=== PATIENT | female | born 1940 | race Caucasian/White ===

== ENCOUNTER → 2017-04-01 | Outpatient (CLI) | payer OTHER, MEDICARE ==
[~2017-04-01] MED LIST: ALPH600C2 PO; CLC100 PO; CMD/25 PO; DICL1GEL12 TOP; DLCS PR; ERGO500037 PO; FURO-85 PO; MECL1TAB42 PO; OMEG10007 PO; POTA-335 PO; SNK PO; TPRSR/50 PO; ULT50X PO; WARF5TAB7 PO
--- NOTE | 2017-04-01 12:36 | DIAGNOSTIC IMAGING REPORT ---
ABDOMEN LIMITED (US) CLINICAL HISTORY: 77 years-old Female presenting with LOW BACK PAIN. TECHNIQUE: Real-time grayscale and limited color Doppler ultrasound imaging of the abdomen limited to the right upper quadrant was performed. COMPARISON: None. FINDINGS: Pancreas: Obscured due to overlying bowel gas. Liver: Moderately hyperechogenic parenchyma with partial obscuration of the right hemidiaphragm, likely indicating moderate steatosis. Cluster of anechoic avascular lesions with posterior acoustic shadowing consistent with cysts noted in the left hepatic lobe. This cluster overall likely represents multiple hepatic cysts or hamartomas immediately adjacent to one another and measures 8.5 x 9.1 x 7.0 cm. The liver measures 21 cm in maximal sagittal dimension. Main portal vein patent with normal directional flow. Biliary: No intrahepatic biliary ductal dilatation. Common bile duct measures up to 4 mm in diameter. Gallbladder: Normal in appearance without evidence of gallstones, gallbladder wall thickening, or pericholecystic fluid. Sonographic Berg's sign negative. Right kidney: Normal in appearance and size, measuring 10.3 cm. No hydronephrosis. Ascites: None. IMPRESSION: 1. No evidence of cholelithiasis or cholecystitis. 2. Hepatic steatosis and hepatomegaly. Electronically signed by: Aleksey Engle M.D. 04/01/2017 12:35 PM Dictated Date/Time: 04/01/2017 12:31 PM
== END | disposition home or self-care (01) ==
LOC: C.ULTR 11:52
PROVIDERS: ATTEND Physician Assistant
DX: M54.5 Low back pain (principal); K76.89 Other specified diseases of liver

== ENCOUNTER → 2017-07-08 | Outpatient (CLI) | payer OTHER, MEDICARE ==
--- NOTE | 2017-07-08 14:25 | MAMMOGRAPHY REPORT ---
BILATERAL DIGITAL SCREENING MAMMOGRAM TOMOSYNTHESIS WITH CAD: 07/08/2017 CLINICAL HISTORY: Routine screening. TECHNIQUE: Breast tomosynthesis in addition to standard 2D mammography was performed. Current study was also evaluated with a Computer Aided Detection (CAD) system. COMPARISON: Comparison is made to exams dated: 07/07/2016 mammogram, 04/09/2015 mammogram, 03/02/2013 mammogram, 03/01/2012 mammogram, 02/27/2011 mammogram, and 02/26/2010 mammogram - [facility]. BREAST COMPOSITION: There are scattered areas of fibroglandular density in both breasts. FINDINGS: There is stable focal asymmetry in the upper outer quadrant of the left breast, and scatter ed benign-appearing calcifications bilaterally. No suspicious mass, architectural distortion or clus ter of suspicious microcalcifications is seen. IMPRESSION: ACR BI-RADS CATEGORY 1: NEGATIVE There is no mammographic evidence of malignancy. A 1 year screening mammogram is recommended. The pa tient will receive written notification of the results. Approximately 10% of breast cancers are not detected with mammography. A negative mammographic report should not delay biopsy if a clinically suggestive mass is present. Tara Alvarez M.D. ay/:07/08/2017 14:04:22 Hotel General Manager: Wan GUERRIER(R)(M), [facility] letter sent: Normal 1/2 BI-RADS Code: ACR BI-RADS Category 1: Negative
== END | disposition home or self-care (01) ==
LOC: C.MAMM 11:09
PROVIDERS: ATTEND Family Medicine
DX: Z12.31 Encounter for screening mammogram for malignant neoplasm of breast (principal)

== ENCOUNTER → 2017-11-30 | Outpatient (CLI) | payer OTHER, MEDICARE | END | disposition home or self-care (01) | LOC: C.RDSM 18:53 | PROVIDERS: ATTEND Physical Medicine & Rehabilitation Sports Medicine | DX: S42.231D 3-part fracture of surgical neck of right humerus, subsequent encounter for fracture with routine healing (principal); X58.XXXD Exposure to other specified factors, subsequent encounter ==

== ENCOUNTER → 2018-04-22 | Outpatient (CLI) | payer OTHER, MEDICARE | END | disposition home or self-care (01) | LOC: C.PATHSPEC 15:11 | PROVIDERS: ATTEND Dentist Oral and Maxillofacial Pathology | DX: D10.39 Benign neoplasm of other parts of mouth (principal) ==

== ENCOUNTER 2018-05-06 03:44 | Emergency (ER) | payer OTHER, MEDICARE ==
[~2018-05-06] VITALS: Ht 152.4 cm; Wt 119.0 kg
[2018-05-06 03:49] VITALS: TEMP 36.9; Ht 152.4 cm; Wt 119.0 kg
--- NOTE | 2018-05-06 04:13 | EMERGENCY ROOM VISIT NOTE ---
History Report prepared by Sharron: Javy Alejandre Under the Supervision of: Dr. Lino Carrillo M.D. First contact with patient: 03:53 Chief Complaint: RESPIRATORY PROBLEMS Stated Complaint: CHEST CONGESTION History of Present Illness The patient is an 78 year old female who presents to the Emergency Room with complaints of constant chest tightness beginning this morning. The patient states that she first got a cold yesterday. She notes that she was sleeping this morning and felt like she had a rattle in her chest. She reports that her symptoms reminded her of when she had pneumonia in the past, prompting her visit to the emergency department. She also complains of a cough. She denies any abdominal pain. The patient states that she also has a history of CHF and atrial fibrillation. She notes that she takes Coumadin and Lasix. Source of History: patient Onset: this morning Position: chest Quality: other (tightness) Timing: constant Associated Symptoms: + cough, No abdominal pain Review of Systems See HPI for pertinent positives & negatives. A total of 10 systems reviewed and were otherwise negative. Past Medical & Surgical Medical Problems: (1) Atrial fibrillation (2) CHF (congestive heart failure) (3) CKD (chronic kidney disease), stage III (4) Fracture of proximal end of right humerus (5) HTN (hypertension) (6) Shoulder pain, acute Surgical Problems: (1) H/O hernia repair (2) H/O: hysterectomy (3) History of colposcopy Family History Patient reports no known family medical history. Social History Smoking Status: Never Smoker Marital Status: single Housing Status: lives with family Occupation Status: retired Current/Historical Medications Scheduled Azithromycin (Zithromax), 250 MG PO DAILY Diclofenac Sodium (Topical) (Voltaren 1% Top Gel), 1 APPLN TOP PRN UD Ergocalciferol (Vitamin D 60190 Unit), 50,000 UNITS PO WK Furosemide (Lasix), 40 MG PO DAILY Furosemide (Lasix), 40 MG PO UD Losartan Potassium (Cozaar), 25 MG PO DAILY Metoprolol Succinate (Toprol Xl), 50 MG PO DAILY Potassium Chloride (K-Tab), 20 MEQ PO UD Potassium Chloride (K-Tab), 20 MEQ PO DAILY Prednisone (Prednisone Tab), 0 PO DAILY Warfarin Sod (Jantoven), 5 MG PO WK Warfarin Sod (Coumadin), 2.5 MG PO 6XWK Scheduled PRN Meclizine Hcl (Meclizine Hcl), 25 MG PO TID PRN for Dizziness or Vertigo Tramadol (Ultram), 50 MG PO Q4H PRN for Pain Allergies Coded Allergies: Latex1 -Allergic Contact Dermititis (Unverified Allergy, Unknown, Rash, itching, blisters, 05/30/15) Morphine (Verified Adverse Reaction, Severe, abdominal pain, 03/28/16) patient describes it as "tearing" Codeine (Verified Adverse Reaction, Mild, NAUSEA,ABD PAIN, 10/19/09) Replaces CODEINE PHOSP Oxycodone (Verified Adverse Reaction, Mild, OPIATE AGONSITS = NAUSEA AND ABD PAIN, 05/30/15) Physical Exam Vital Signs Date Time Temp Pulse Resp B/P (MAP) Pulse Ox O2 Delivery O2 Flow Rate FiO2 05/06/18 06:00 89 18 141/90 96 Room Air 05/06/18 04:51 96 Room Air 05/06/18 04:45 80 05/06/18 04:00 95 Room Air 05/06/18 03:49 36.9 84 18 169/116 95 Room Air Physical Exam GENERAL: Awake, alert, well-appearing, in no acute distress HENT: Normocephalic, atraumatic. Oropharynx unremarkable. EYES: Normal conjunctiva. Sclera non-icteric. NECK: Supple. No nuchal rigidity. FROM. No JVD. RESPIRATORY: Clear to auscultation. CARDIAC: Regular rate, normal rhythm. Extremities warm and well perfused. Pulses equal. ABDOMEN: Soft, non-distended. No tenderness to palpation. No rebound or guarding. No masses. RECTAL: Deferred. MUSCULOSKELETAL: Chest examination reveals no tenderness. The back is symmetrical on inspection without obvious abnormality. There is no CVA tenderness to palpation. No joint edema. LOWER EXTREMITIES: Calves are equal size bilaterally and non-tender. No edema. No discoloration. NEURO: Normal sensorium. No sensory or motor deficits noted. SKIN: No rash or jaundice noted. Medical Decision & Procedures ER Provider Diagnostic Interpretation: Radiology results as stated below per my review and interpretation: CHEST X-RAY: Chronic changes noted. No pneumonia, congestion, or pneumothorax. Laboratory Results 05/06/18 04:45 Red Blood Count 4.23, Mean Corpuscular Volume 87.7, Mean Corpuscular Hemoglobin 29.1, Mean Corpuscular Hemoglobin Concent 33.2, Mean Platelet Volume 9.6, Neutrophils (%) (Auto) 82.1, Lymphocytes (%) (Auto) 11.5, Monocytes (%) (Auto) 5.2, Eosinophils (%) (Auto) 1.0, Basophils (%) (Auto) 0.1, Neutrophils # (Auto) 5.57, Lymphocytes # (Auto) 0.78, Monocytes # (Auto) 0.35, Eosinophils # (Auto) 0.07, Basophils # (Auto) 0.01 05/06/18 04:45 Test 05/06/18 04:45 White Blood Count 6.79 K/uL (4.8-10.8) Red Blood Count 4.23 M/uL (4.2-5.4) Hemoglobin 12.3 g/dL (12.0-16.0) Hematocrit 37.1 % (37-47) Mean Corpuscular Volume 87.7 fL (80-100) Mean Corpuscular Hemoglobin 29.1 pg (25-34) Mean Corpuscular Hemoglobin Concent 33.2 g/dl (32-36) Platelet Count 205 K/uL (130-400) Mean Platelet Volume 9.6 fL (7.4-10.4) Neutrophils (%) (Auto) 82.1 % Lymphocytes (%) (Auto) 11.5 % Monocytes (%) (Auto) 5.2 % Eosinophils (%) (Auto) 1.0 % Basophils (%) (Auto) 0.1 % Neutrophils # (Auto) 5.57 K/uL (1.4-6.5) Lymphocytes # (Auto) 0.78 K/uL (1.2-3.4) Monocytes # (Auto) 0.35 K/uL (0.11-0.59) Eosinophils # (Auto) 0.07 K/uL (0-0.5) Basophils # (Auto) 0.01 K/uL (0-0.2) RDW Standard Deviation 49.0 fL (36.4-46.3) RDW Coefficient of Variation 15.0 % (11.5-14.5) Immature Granulocyte % (Auto) 0.1 % Immature Granulocyte # (Auto) 0.01 K/uL (0.00-0.02) Prothrombin Time 41.0 SECONDS (9.0-12.0) Prothromb Time International Ratio 4.0 (0.9-1.1) Anion Gap 8.0 mmol/L (3-11) Est Creatinine Clear Calc Drug Dose 61.7 ml/min Estimated GFR () 73.9 Estimated GFR (Non- 63.8 BUN/Creatinine Ratio 15.7 (10-20) Calcium Level 8.4 mg/dl (8.5-10.1) Total Bilirubin 0.6 mg/dl (0.2-1) Aspartate Amino Transf (AST/SGOT) 21 U/L (15-37) Alanine Aminotransferase (ALT/SGPT) 22 U/L (12-78) Alkaline Phosphatase 80 U/L (45-117) Total Creatine Kinase 127 U/L (26-192) Creatine Kinase MB 1.8 ng/ml (0.5-3.6) Creatine Kinase MB Ratio 1.4 (0-3.0) Troponin I < 0.015 ng/ml (0-0.045) Total Protein 7.1 gm/dl (6.4-8.2) Albumin 3.3 gm/dl (3.4-5.0) Globulin 3.8 gm/dl (2.5-4.0) Albumin/Globulin Ratio 0.9 (0.9-2) Labs reviewed by ED physician. Medications Administered Medications (Trade) Dose Ordered Sig/Carrington Route Start Time Stop Time Status Last Admin Dose Admin Levalbuterol (Xopenex 1.25MG/ 3ML Neb) 1.25 mg NOW STAT INH 05/06/18 04:14 05/06/18 04:16 DC 05/06/18 04:52 1.25 MG Methylprednisolone Sodium Succinate (Solu-Medrol IV) 60 mg NOW STAT IV 05/06/18 05:38 05/06/18 05:39 DC 05/06/18 05:57 60 MG Azithromycin (Zithromax Tab) 500 mg NOW STAT PO 05/06/18 05:53 05/06/18 05:54 DC 05/06/18 06:03 500 MG ECG Per My Interpretation Indication: chest pain Rate (beats per minute): 80 Rhythm: atrial fibrillation Findings: other (No ST elevation/depression) ED Course 0412: Past medical records reviewed. The patient was evaluated in room B6. A complete history and physical examination was performed. 0557: Upon reexamination the patient is stable. I discussed results and treatment plan with the patient. She verbalizes agreement and understanding. The patient is ready for discharge. Medical Decision Differential diagnosis: Etiologies such as infections, reactive airway disease, pneumonia, pneumothorax , COPD, CHF, cardiac ischemia, pulmonary embolism, musculoskeletal, gastrointestinal, as well as others were entertained. This is an 78-year-old female who presents to the emergency department complaining of shortness of breath and congestion and cough. The patient does not appear to be in any acute distress and is not hypoxic. She was given breathing treatments here in the emergency department with improvement in her symptoms. Her chest x-ray does not show any evidence of pneumonia congestion or pneumothorax. Her chest x-ray is essentially unchanged from previous chest x -rays. Based on these findings I will place the patient on prednisone along with azithromycin. She was given an inhaler to use at home. Of note the patient's INR was found to be 4.0 and I recommended she skip her Coumadin for 1 night. Patient was in agreement with the treatment plan. Medication Reconcilliation Current Medication List: was personally reviewed by me Blood Pressure Screening Patient's blood pressure: Elevated blood pressure Blood pressure disposition: Referred to PCP Impression Primary Impression: Bronchitis Scribe Attestation The scribe's documentation has been prepared under my direction and personally reviewed by me in its entirety. I confirm that the note above accurately reflects all work, treatment, procedures, and medical decision making performed by me. Departure Information Dispostion Home / Self-Care Prescriptions Prednisone (Prednisone Tab) 20 Mg Tab 0 PO DAILY, #7 TAB 2 TABS DAILY FOR 2 DAYS, THEN 1 TAB DAILY FOR 2 DAYS, THEN 1/2 TAB DAILY FOR 2 DAYS. Prov: Lino Carrillo MD 05/06/18 Azithromycin (ZITHROMAX) 250 Mg Tab 250 MG PO DAILY, #4 TAB Prov: Lino Carrillo MD 05/06/18 Referrals No Doctor, Assigned (PCP) Forms HOME CARE DOCUMENTATION FORM, IMPORTANT VISIT INFORMATION, WORK / SCHOOL INSTRUCTIONS Patient Instructions My [facility] Additional Instructions Use inhaler twice every 6 hours You have been examined and treated today on an emergency basis only. This is not a substitute for, or an effort to provide, complete comprehensive medical care. It is impossible to recognize and treat all injuries or illnesses in a single emergency department visit. It is therefore important that you follow up closely with Dr Coates. Call as soon as possible for an appointment. Thank you for your time and consideration. I look forward to speaking with you again soon. Please don't hesitate to call us if you have any questions.
[2018-05-06] MEDS ORDERED: LEVALBUTEROL 1.25MG/3ML NEB INH STA (04:14)
[2018-05-06] MEDS ORDERED: NITR1CAP32 PO (04:41)
[2018-05-06] MEDS ORDERED: LOSA1TAB PO (04:43)
[2018-05-06] MEDS ORDERED: FRS/40 PO ×2 (04:44→04:45)
[2018-05-06] MEDS ORDERED: METO-217 PO (04:47)
[2018-05-06] MEDS ORDERED: POTA1TAB97 PO ×2 (04:50→04:53)
[2018-05-06 04:51] VITALS: O2SAT 96
[2018-05-06 04:54] LABS: BASO % 0.1 %; BASO ABS # 0.01 K/uL (0-0.2); EOS ABS # 0.07 K/uL (0-0.5); HEMATOCRIT 37.1 % (37-47); HEMOGLOBIN 12.3 g/dL (12.0-16.0); IG# 0.01 K/uL (0.00-0.02); LYMPH % 11.5 %; LYMPH ABS # 0.78 K/uL (1.2-3.4); MEAN CELL VOLUME 87.7 fL (80-100); MEAN CORPUSCULAR HEMOGLOBIN 29.1 pg (25-34); MEAN CORPUSCULAR HGB CONC 33.2 g/dl (32-36); MEAN PLATELET VOLUME 9.6 fL (7.4-10.4); MONO % 5.2 %; MONO ABS # 0.35 K/uL (0.11-0.59); NEUT % 82.1 %; NEUT ABS # 5.57 K/uL (1.4-6.5); PLATELET COUNT 205 K/uL (130-400); WHITE BLOOD COUNT 6.79 K/uL (4.8-10.8)
[2018-05-06] MEDS ORDERED: TRAM-10 PO (04:58)
[2018-05-06 05:17] LABS: ALBUMIN 3.3 gm/dl (3.4-5.0); ALKALINE PHOSPHATASE 80 U/L (45-117); ALT/SGPT 22 U/L (12-78); AST/SGOT 21 U/L (15-37); BLOOD UREA NITROGEN 13 mg/dl (7-18); CALCIUM 8.4 mg/dl (8.5-10.1); CARBON DIOXIDE 24 mmol/L (21-32); CKMB 1.8 ng/ml (0.5-3.6); CREATININE 0.86 mg/dl (0.60-1.20); GLUCOSE 117 mg/dl (70-99); POTASSIUM 3.8 mmol/L (3.5-5.1); SODIUM 139 mmol/L (136-145); TOTAL PROTEIN 7.1 gm/dl (6.4-8.2)
[2018-05-06] MEDS ORDERED: METHYLPREDNISOLONE 125 MG VIAL IV STA (05:38)
[2018-05-06] MEDS ORDERED: AZITHROMYCIN 250 MG TAB PO STA (05:53)
[2018-05-06] MEDS ORDERED: PRED20TA2 PO (05:55)
[2018-05-06] MEDS ORDERED: AZIT-60 PO (05:55)
[2018-05-06 06:00] VITALS: BP 141/90; PULSE 89; O2SAT 96
--- NOTE | 2018-05-06 07:19 | DIAGNOSTIC IMAGING REPORT ---
SINGLE VIEW CHEST CLINICAL HISTORY: Dyspnea. FINDINGS: An AP, portable, upright chest radiograph is compared to study dated 03/27/2016. The examination is degraded by portable technique and patient rotation. The heart is enlarged. There is pulmonary vascular congestion. Foci of linear atelectasis are present at the lung bases. No airspace consolidation, large pleural effusion, or pneumothorax is seen. The skeletal structures are osteopenic. The bony thorax is grossly intact. A right shoulder arthroplasty is in place. IMPRESSION: 1. Cardiomegaly with evidence of mild congestive failure. 2. No airspace consolidation or large pleural effusion is identified. Electronically signed by: dK Moore M.D. 05/06/2018 7:18 AM Dictated Date/Time: 05/06/2018 7:17 AM
[2018-05-06] MEDS ORDERED: LEValbuterol HFA 15GM INHALER INH SCH (09:00)
== END 2018-05-06 05:00 | disposition home or self-care (01) ==
LOC: C.EDB 03:45
DX: J40 Bronchitis, not specified as acute or chronic (principal); R79.1 Abnormal coagulation profile; I11.0 Hypertensive heart disease with heart failure; I50.9 Heart failure, unspecified; I48.91 Unspecified atrial fibrillation; Z79.01 Long term (current) use of anticoagulants; Z91.040 Latex allergy status; Z88.6 Allergy status to analgesic agent

== ENCOUNTER 2020-03-08 10:49 | Inpatient (IN) ==
[2020-03-08 11:45] LABS: Basophils # (auto) 0.01 K/uL (0-0.2); Basophils % (auto) 0.1 %; Eosinophils # (auto) 0.15 K/uL (0-0.5); Eosinophils % (auto) 2.1 %; Hematocrit (blood only) 38.5 % (37-47); Hemoglobin 12.5 g/dL (12.0-16.0); Immature Granulocytes # (auto) 0.03 K/uL (0.00-0.02); Immature Granulocytes % (auto) 0.4 %; Lymphocytes # (auto) 1.29 K/uL (1.2-3.4); Lymphocytes % (auto) 17.8 %; Mean Corpuscular Hemoglobin 29.1 pg (25-34); Mean Corpuscular Hgb Conc 32.5 g/dL (32-36); Mean Corpuscular Volume 89.7 fL (80-100); Mean Platelet Volume 9.8 fL (7.4-10.4); Monocytes # (auto) 0.49 K/uL (0.11-0.59); Monocytes % (auto) 6.8 %; Neutrophils # (auto) 5.26 K/uL (1.4-6.5); Neutrophils % (auto) 72.8 %; Platelet Count 277 K/uL (130-400); RDW Coefficient of Variation 14.9 % (11.5-14.5); RDW Standard Deviation 48.4 fL (36.4-46.3); Red Blood Count 4.29 M/uL (4.2-5.4); White Blood Count 7.23 K/uL (4.8-10.8)
[2020-03-08 12:01] LABS: Alanine Aminotransferase 24 U/L (12-78); Albumin Level 3.5 gm/dl (3.4-5.0); Aspartate Aminotransferase 20 U/L (15-37); BUN Creatinine Ratio 16.6 (10-20); Blood Urea Nitrogen 21 mg/dl (7-18); Calcium 9.2 mg/dl (8.5-10.1); Carbon Dioxide 24 mmol/L (21-32); Chloride 109 mmol/L (98-107); Creatinine Clr Calc Pharmacy 45.2 ml/min; Est GFR (African American) 45.5; Est GFR (Non-African American) 39.3; Glucose 102 mg/dl (70-99); Potassium 4.4 mmol/L (3.5-5.1); Sodium 140 mmol/L (136-145)
[2020-03-08 12:06] LABS: Albumin Globulin Ratio 0.8 (0.9-2); Alkaline Phosphatase 117 U/L (45-117); Bilirubin,Total 0.5 mg/dl (0.2-1); Globulin 4.3 gm/dl (2.5-4.0); Total Protein 7.8 gm/dl (6.4-8.2); Troponin I < 0.015 ng/ml (0-0.045)
[2020-03-08] MEDS ORDERED: FUROSEMIDE 40 MG/4 ML VIAL IV STA (12:09)
[2020-03-08 12:15] LABS: INR 2.9 (0.9-1.1); Partial Thromboplastin Ratio 1.4; Partial Thromboplastin Time 40.4 Seconds (21.0-31.0); Prothrombin Time 28.7 Seconds (9.0-12.0)
--- NOTE | 2020-03-08 12:45 | XRay Report ---
XR chest 1V portable HISTORY: Shortness of breath COMPARISON: Chest 05/06/2018. FINDINGS: There is a right shoulder prosthesis. No pneumothorax. No pleural effusions. The heart yue ins enlarged. A few linear densities within the lungs favor scarring or atelectasis. This is similar to the prior study. No new focal lung consolidations to suggest pneumonia. Mild interstitial thickeni ng favors congestive change. This is similar to the prior study. IMPRESSION: Stable cardiomegaly and mild congestive change. ACT 112: Negative or not required by law. Electronically signed by: Curtis Vega M.D. 03/08/2020 12:44 PM
--- NOTE | 2020-03-08 13:39 | Emergency Department Note ---
History of Present Illness General Chief complaint: Swelling/Edema to Extremity Stated complaint: FLUID RETENTION, REF'D BY BRIANNA Source: patient and RN notes reviewed Mode of arrival: ambulatory Limitations: no limitations History of Present Illness Provider complaint: 20+ pound weight gain, fluid retention, CHF Onset (ago): week(s) 5 Maximum Pain Intensity: 0 This patient is an 80-year-old female who presents emergency department with complaints of increasing fatigue, difficulty with ambulation and weight gain of 25 pounds over the last 5 weeks. Patient states she does have a history of fluid retention and congestive heart failure. She takes 80 mg of Lasix daily. Patient states she also has a history of atrial fibrillation. She did contact her primary care physician yesterday, she was referred to the emergency department today. Patient denies any significant chest pain or palpitations, cough, wheezing, fevers or sputum production. She denies any abdominal discomfort. Home Medications Home Medications Medication Instructions Recorded Confirmed Type aspirin [Aspir-81] 81 mg PO DAILY 10/28/19 03/08/20 History atorvastatin 20 mg PO HS 10/28/19 03/08/20 History diclofenac sodium [Voltaren] 2 g TOPICAL BID 10/28/19 03/08/20 History ergocalciferol (vitamin D2) 1,250 mcg PO WK 10/28/19 03/08/20 History [Vitamin D2] furosemide [Lasix] 80 mg PO DAILY 10/28/19 03/08/20 History losartan 25 mg PO HS 10/28/19 03/08/20 History metoprolol succinate 50 mg PO HS 10/28/19 03/08/20 History potassium chloride 20 meq PO BID 10/28/19 03/08/20 History warfarin [Jantoven] 5 mg PO SUTUTHSA 10/28/19 03/08/20 History famotidine [Pepcid] 20 mg PO DAILY #30 tab 10/29/19 03/08/20 Rx warfarin 2.5 mg PO MOWEFR 03/08/20 03/08/20 History Allergies Allergy/AdvReac Type Severity Reaction Status Date / Time latex Allergy Unknown Rash, Verified 10/28/19 23:09 itching, blisters morphine AdvReac Severe abdominal Verified 10/28/19 23:09 pain codeine AdvReac Mild NAUSEA,ABD Verified 10/28/19 23:09 PAIN oxycodone AdvReac Mild OPIATE Verified 10/28/19 23:09 AGONSITS = NAUSEA AND ABD PAIN Past Med/Surg History Medical History (Updated 03/11/20 @ 09:42 by Zuly Mei MD) Atrial fibrillation (Chronic) Cerebrovascular disease CHF (congestive heart failure) (Acute) CKD (chronic kidney disease), stage III (Chronic) Fracture of proximal end of right humerus HTN (hypertension) (Chronic) Shoulder pain, acute Surgical History H/O hernia repair (Chronic) H/O: hysterectomy (Chronic) History of colonoscopy History of colposcopy (Inactive) History of right shoulder replacement Status post repair of paraesophageal diaphragmatic hernia Family History Mother Alzheimer disease Social History Preferred Language: [place] Communication Ability: Effective Recreational Programs Director Required: No Beliefs That Will Affect Care: None Current Living Situation: Family Current Living Situation Comment: Son lives with her Other Information That Helps Us Care for You: No Feels Safe at Home: Yes Safety Concerns: Feels Safe At This Time Smoking Status: Never smoker Hx Alcohol Use: No Hx Substance Use: No Review of Systems See HPI for pertinent positives & negatives. and A total of 10 systems reviewed and were otherwise negative Physical Exam Vital Signs Vital Signs - 24 hr 03/08/20 11:05 03/08/20 11:26 03/08/20 11:45 Temperature 36.8 C Temperature Source Oral Pulse Rate 67 72 Pulse Rate [Right Finger] 62 Respiratory Rate 18 24 Respiratory Depth Normal Blood Pressure 157/85 H Blood Pressure [Right Arm] 142/77 H Blood Pressure Mean 109 Blood Pressure Mean [Right Arm] 98 Pulse Oximetry 98 93 93 Oxygen Delivery Method Room Air Room Air Room Air Sepsis Recent Fever Within 48 Hours No Sepsis New/Unexplained Change in Mental Status No Sepsis Action Taken by Nursing No Action Required 03/08/20 12:28 Temperature Temperature Source Pulse Rate Pulse Rate [Right Finger] 62 Respiratory Rate 20 Respiratory Depth Blood Pressure Blood Pressure [Right Arm] 114/81 Blood Pressure Mean Blood Pressure Mean [Right Arm] 92 Pulse Oximetry 94 Oxygen Delivery Method Room Air Sepsis Recent Fever Within 48 Hours Sepsis New/Unexplained Change in Mental Status Sepsis Action Taken by Nursing Vital signs reviewed. General: Chronically ill-appearing 80-year-old female, in no significant distress. HEENT: No scleral icterus, PERRLA, neck supple. Atraumatic. Cardiovascular: Rate controlled but irregular, no extra sounds. Pulmonary: Exam limited by body habitus however there are faint crackles at the bases and diminished breath sounds throughout. No respiratory distress. Abdomen: Soft, nontender, nondistended, positive bowel sounds. Musculoskeletal: Atraumatic, no peripheral edema. Neurologic: Patient awake alert and oriented x 3 Skin: Warm, dry, no rash Course Administered Medications Aspirin (Ecotrin Ectab) 81 mg PO DAILY JOSSY Stop: 04/08/20 08:59 Last Admin: 03/11/20 08:18 Dose: 81 mg Documented by: [id number] Admin: 03/10/20 07:50 Dose: 81 mg Documented by: [id number] Admin: 03/09/20 08:43 Dose: 81 mg Documented by: [id number] Atorvastatin Calcium (Lipitor) 20 mg PO HS JOSSY Stop: 04/07/20 20:59 Last Admin: 03/10/20 20:08 Dose: 20 mg Documented by: [id number] Admin: 03/09/20 21:34 Dose: 20 mg Documented by: [id number] Admin: 03/08/20 20:03 Dose: 20 mg Documented by: [id number] Diclofenac Sodium (Voltaren 1% Top) 2 gm EXT BID JOSSY Stop: 04/07/20 20:59 Last Admin: 03/11/20 08:22 Dose: Not Given Documented by: [id number] Admin: 03/10/20 20:08 Dose: Not Given Documented by: [id number] Admin: 03/10/20 10:00 Dose: Not Given Documented by: [id number] Admin: 03/09/20 21:12 Dose: Not Given Documented by: [id number] Admin: 03/09/20 08:43 Dose: Not Given Documented by: [id number] Admin: 03/08/20 20:04 Dose: Not Given Documented by: [id number] Famotidine (Pepcid) 20 mg PO DAILY JOSSY Stop: 04/08/20 08:59 Last Admin: 03/11/20 08:19 Dose: Not Given Documented by: [id number] Admin: 03/10/20 07:51 Dose: 20 mg Documented by: [id number] Admin: 03/09/20 08:43 Dose: Not Given Documented by: [id number] Furosemide 100 mg/ Syringe 10 mls @ 4 mls/min IV [id number] [facility] Stop: 04/07/20 19:14 Last Admin: 03/11/20 08:18 Dose: 4 mls/min Documented by: [id number] Admin: 03/10/20 16:35 Dose: 4 mls/min Documented by: [id number] Admin: 03/10/20 09:59 Dose: 4 mls/min Documented by: [id number] Admin: 03/09/20 16:14 Dose: 4 mls/min Documented by: [id number] Admin: 03/09/20 08:43 Dose: 4 mls/min Documented by: [id number] Admin: 03/08/20 20:01 Dose: 4 mls/min Documented by: [id number] Losartan Potassium (Cozaar) [address] [facility] Stop: 04/07/20 20:59 Last Admin: 03/08/20 20:02 Dose: 25 mg Documented by: [id number] Metoprolol Succinate (Toprol Xl) [address] [facility] Stop: 04/07/20 20:59 Last Admin: 03/10/20 20:08 Dose: 50 mg Documented by: [id number] Admin: 03/09/20 21:34 Dose: 50 mg Documented by: [id number] Admin: 03/08/20 20:03 Dose: 50 mg Documented by: [id number] Polyethylene Glycol (Miralax Powder Packet) 17 gm PO DAILY PRN PRN Reason: Constipation Stop: 04/07/20 18:43 Last Admin: 03/11/20 08:18 Dose: 17 gm Documented by: [id number] Potassium Chloride (Klor-Con M20) 20 meq PO BID JOSSY Stop: 04/07/20 20:59 Last Admin: 03/11/20 08:18 Dose: 20 meq Documented by: [id number] Admin: 03/10/20 20:07 Dose: 20 meq Documented by: [id number] Admin: 03/10/20 07:50 Dose: 20 meq Documented by: [id number] Admin: 03/09/20 21:33 Dose: 20 meq Documented by: [id number] Admin: 03/09/20 08:43 Dose: 20 meq Documented by: [id number] Admin: 03/08/20 20:03 Dose: 20 meq Documented by: [id number] Warfarin Sodium (Coumadin) 5 mg PO [id number]@1600 [facility] Stop: 04/09/20 15:59 Last Admin: 03/10/20 16:35 Dose: 5 mg Documented by: [id number] Warfarin Sodium (Coumadin) 2.5 mg PO MoWeFr@1600 [facility] Stop: 04/08/20 15:59 Last Admin: 03/09/20 16:13 Dose: 2.5 mg Documented by: [id number] Discontinued Medications Furosemide (Lasix) 100 mg IV NOW STA Stop: 03/08/20 12:10 Last Admin: 03/08/20 13:44 Dose: 100 mg Documented by: [id number] Potassium Chloride (Klor-Con M20) 20 meq PO NOW ONE Stop: 03/10/20 19:16 Last Admin: 03/10/20 20:07 Dose: 20 meq Documented by: [id number] Medical Decision Making Differential Diagnosis Differential diagnosis: Etiologies such as infections, reactive airway disease, COPD, pneumonia, pleural effusion, pulmonary edema, ARDS, pneumothorax, CHF, cardiac ischemia, cardiac tamponade, dysrhythmia, anemia, pulmonary embolism, musculoskeletal, gastrointestinal process, as well as others were entertained. Medical Records Attestation: I reviewed the patient's medical records. Home Medications Current Medication List: was personally reviewed by me Laboratory Data Attestation: I reviewed the patient's lab results. Result diagrams: 03/08/20 11:34 03/11/20 05:32 Lab Results 03/08/20 03/08/20 03/08/20 Range/Units 11:34 11:34 11:34 WBC 7.23 (4.8-10.8) K/uL RBC 4.29 (4.2-5.4) M/uL Hgb 12.5 (12.0-16.0) g/dL Hct 38.5 (37-47) % MCV 89.7 (80-100) fL MCH 29.1 (25-34) pg MCHC 32.5 (32-36) g/dL RDW Std Deviation 48.4 H (36.4-46.3) fL RDW Coeff of Luis Miguel 14.9 H (11.5-14.5) % Plt Count 277 (130-400) K/uL MPV 9.8 (7.4-10.4) fL Immature Gran % (Auto) 0.4 % Neut % (Auto) 72.8 % Lymph % (Auto) 17.8 % Harris % (Auto) 6.8 % Eos % (Auto) 2.1 % Baso % (Auto) 0.1 % Neut # (Auto) 5.26 (1.4-6.5) K/uL Lymph # (Auto) 1.29 (1.2-3.4) K/uL Harris # (Auto) 0.49 (0.11-0.59) K/uL Eos # (Auto) 0.15 (0-0.5) K/uL Baso # (Auto) 0.01 (0-0.2) K/uL Immature Gran # (Auto) 0.03 H (0.00-0.02) K/uL PT 28.7 H (9.0-12.0) Seconds INR 2.9 H (0.9-1.1) APTT 40.4 H (21.0-31.0) Seconds PTT Ratio 1.4 Sodium 140 (136-145) mmol/L Potassium 4.4 (3.5-5.1) mmol/L Chloride 109 H (98-107) mmol/L Carbon Dioxide 24 (21-32) mmol/L Anion Gap 6.0 (3-11) BUN 21 H (7-18) mg/dl Creatinine 1.27 H (0.6-1.2) mg/dl Est Cr Clr Drug Dosing 45.2 ml/min Est GFR ( Amer) 45.5 Est GFR (Non-Af Amer) 39.3 BUN/Creatinine Ratio 16.6 (10-20) Glucose 102 H (70-99) mg/dl Calcium 9.2 (8.5-10.1) mg/dl Total Bilirubin 0.5 (0.2-1) mg/dl AST 20 (15-37) U/L ALT 24 (12-78) U/L Alkaline Phosphatase 117 (45-117) U/L Troponin I < 0.015 (0-0.045) ng/ml NT-Pro-B Natriuret Pep (0-1800) pg/ml Total Protein 7.8 (6.4-8.2) gm/dl Albumin 3.5 (3.4-5.0) gm/dl Globulin 4.3 H (2.5-4.0) gm/dl Albumin/Globulin Ratio 0.8 L (0.9-2) 06/25/20 Range/Units 11:34 WBC (4.8-10.8) K/uL RBC (4.2-5.4) M/uL Hgb (12.0-16.0) g/dL Hct (37-47) % MCV (80-100) fL MCH (25-34) pg MCHC (32-36) g/dL RDW Std Deviation (36.4-46.3) fL RDW Coeff of Luis Miguel (11.5-14.5) % Plt Count (130-400) K/uL MPV (7.4-10.4) fL Immature Gran % (Auto) % Neut % (Auto) % Lymph % (Auto) % Harris % (Auto) % Eos % (Auto) % Baso % (Auto) % Neut # (Auto) (1.4-6.5) K/uL Lymph # (Auto) (1.2-3.4) K/uL Harris # (Auto) (0.11-0.59) K/uL Eos # (Auto) (0-0.5) K/uL Baso # (Auto) (0-0.2) K/uL Immature Gran # (Auto) (0.00-0.02) K/uL PT (9.0-12.0) Seconds INR (0.9-1.1) APTT (21.0-31.0) Seconds PTT Ratio Sodium (136-145) mmol/L Potassium (3.5-5.1) mmol/L Chloride (98-107) mmol/L Carbon Dioxide (21-32) mmol/L Anion Gap (3-11) BUN (7-18) mg/dl Creatinine (0.6-1.2) mg/dl Est Cr Clr Drug Dosing ml/min Est GFR ( Amer) Est GFR (Non-Af Amer) BUN/Creatinine Ratio (10-20) Glucose (70-99) mg/dl Calcium (8.5-10.1) mg/dl Total Bilirubin (0.2-1) mg/dl AST (15-37) U/L ALT (12-78) U/L Alkaline Phosphatase (45-117) U/L Troponin I (0-0.045) ng/ml NT-Pro-B Natriuret Pep 2384 H (0-1800) pg/ml Total Protein (6.4-8.2) gm/dl Albumin (3.4-5.0) gm/dl Globulin (2.5-4.0) gm/dl Albumin/Globulin Ratio (0.9-2) Imaging Data Radiologist's Impression: XR chest 1V portable HISTORY: Shortness of breath COMPARISON: Chest 05/06/2018. FINDINGS: There is a right shoulder prosthesis. No pneumothorax. No pleural effusions. The heart remains enlarged. A few linear densities within the lungs favor scarring or atelectasis. This is similar to the prior study. No new focal lung consolidations to suggest pneumonia. Mild interstitial thickening favors congestive change. This is similar to the prior study. IMPRESSION: Stable cardiomegaly and mild congestive change. ACT 112: Negative or not required by law. Electronically signed by: Curtis Vega M.D. 03/08/2020 12:44 PM Dictated: 03/08/20 1242 Transcribed: 03/08/20 1242 ECG Data Attestation: I personally reviewed and interpreted this ECG as follows: Indication: + SOB/dyspnea and + weakness Rate (beats per minute): 74 Rhythm: + atrial fibrillation and + other (Low voltage) ECG [place]: + Left axis deviation ECG Findings: + Q waves (Inferior) Blood Pressure Blood Pressure Findings: Normal blood pressure Blood Pressure Disposition: did not require urgent referral MDM Narrative This patient was evaluated and appeared to be in no significant distress. Patient confirms 20+ pound weight gain over the last 4 to 5 weeks. Patient takes 80 mg of IV Lasix daily. An order for cardiac monitoring was placed and the patient was found placed on the assembler billiard table. Patient was found to be in a rate controlled atrial fibrillation. Patient's chest x-ray reveals stable cardiomegaly and mild congestion. Patient was given 100 mg of IV Lasix. She did begin to diurese in the emergency department. Laboratory work reveals a negative troponin, BNP of 2300, INR of 2.9 and a creatinine of 1.27. Patient will require IV diuresis for the excessive amount of fluid retained. She is aware of the plan and agrees. Case was discussed with the hospitalist for further evaluation and management. Impression & Plan Volume overload, CHF (congestive heart failure) Discharge Plan Visit Data *Final* Discharge Date/Time: 03/08/20 18:02 Chief Complaint: Swelling/Edema to Extremity Stated Complaint: FLUID RETENTION, REF'D BY BRIANNA ED Provider: Zuly Mei Discharge Problem: Volume overload, CHF (congestive heart failure) Patient Disposition: Admitted As Inpatient Discharge Instructions Interventions: ED Discharge Assessment Last Done: 03/08/20 18:02 Discharge Problem: Volume overload Qualifiers: Hypervolemia type: other Qualified Code(s): E87.79 - Other fluid overload
--- NOTE | 2020-03-08 14:19 | History & Physical Report ---
Date of Service March 08, 2020 Assessment & Plan (1) Acute heart failure with preserved ejection fraction (HFpEF): This is an 80-year-old female who has significant past medical history of persistent atrial fibrillation anticoagulated on warfarin, diastolic CHF, HTN, HLD, CKD stage III, pre DM, history of CVA without residual deficit, prediabetes, morbid obesity who presents to ED secondary to weight gain of 20 pounds in 1 month. In ED patient remained hemodynamically stable and was saturating well on room air. CBC was generally unremarkable, BMP revealed BUN 21, creatinine 1.27, glucose 102, proBNP 2384, troponin WNL. Chest x-ray with mild CHF. In ED she received 100 mg IV Lasix, and she did take 80 mg orally this morning. During our evaluation she did start to have to urinate. Admit to telemetry Lasix 100 mg twice daily Potassium supplementation Obtain echocardiogram (last February 2019 revealed EF 55%, left atrium severely enlarged, mild aortic valve sclerosis) Daily weights, strict I's and O's Heart healthy, low-sodium diet, FR 1800 cc Consult cardiology -appreciate their input (2) Atrial fibrillation: Persistent atrial fibrillation Rate controlled on metoprolol Anticoagulated on warfarin, INR therapeutic Monitor INR (3) HTN (hypertension): Blood pressure stable Continue metoprolol and losartan Monitor (4) CKD (chronic kidney disease), stage III: Baseline creatinine 1.2 BUN/creatinine 21 and 1.27 today Monitor given aggressive diuresis (5) Pre-diabetes: Last A1c 6.5 11/11/2019, which technically meets critera for T2DM obtain A1C in a.m. encourage lifestyle and diet modifications monitor FBS (6) DVT prophylaxis: Continue warfarin INR therapeutic, monitor INR Disposition: Admit to telemetry Follow-up: PCP Dr. Coates upon discharge Patient was seen and examined in collaboration with Dr. Lanier, see addendum History of Present Illness Chief Complaint: 20 pound weight gain in 1 month. Primary Care Provider: Willie Coates MD This is an 80-year-old female who has significant past medical history of persistent atrial fibrillation anticoagulated on warfarin, diastolic CHF, HTN, HLD, CKD stage III, pre DM, history of CVA without residual deficit, prediabetes, morbid obesity who presents to ED secondary to weight gain of 20 pounds in 1 month. Patient takes Lasix 80 mg daily for diastolic CHF. Over the past 1 to week she has been increasing it to 120 and 160 daily without noticing significant increase in urinary output. Over the past 1 month she has noticed progressive weight gain of 20 pounds, increased lower extremity edema, abdominal bloating, decreased appetite, early satiety, GAVIRIA. She chronically sleeps in a recliner and therefore denies any orthopnea or PND. She denies any recent illness, fever, chills, sweats, dizziness, lightheadedness, syncope, chest pain, chest pain with exertion, shortness with at rest, hemoptysis, cough, abdominal pain, emesis, melena hematochezia or constipation. She is overall noticed decreased urgency or frequency with urination, but denies hematuria. She has been compliant with all of her medications. He has not followed with cardiology in approximately 1 year. Her baseline weight is approximately 250 and currently she is between 270-75. In ED patient remained hemodynamically stable and was saturating well on room air. CBC was generally unremarkable, BMP revealed BUN 21, creatinine 1.27, glucose 102, proBNP 2384, troponin WNL. Chest x-ray with mild CHF. In ED she received 100 mg IV Lasix, and she did take 80 mg orally this morning. During our evaluation she did start to have to urinate. Allergies Allergy/AdvReac Type Severity Reaction Status Date / Time latex Allergy Unknown Rash, Verified 10/28/19 23:09 itching, blisters morphine AdvReac Severe abdominal Verified 10/28/19 23:09 pain codeine AdvReac Mild NAUSEA,ABD Verified 10/28/19 23:09 PAIN oxycodone AdvReac Mild OPIATE Verified 10/28/19 23:09 AGONSITS = NAUSEA AND ABD PAIN Home Medications Home Medications Medication Instructions Recorded Confirmed Type aspirin [Aspir-81] 81 mg PO DAILY 10/28/19 03/08/20 History atorvastatin 20 mg PO HS 10/28/19 03/08/20 History diclofenac sodium [Voltaren] 2 g TOPICAL BID 10/28/19 03/08/20 History ergocalciferol (vitamin D2) 1,250 mcg PO WK 10/28/19 03/08/20 History [Vitamin D2] furosemide [Lasix] 80 mg PO DAILY 10/28/19 03/08/20 History losartan 25 mg PO HS 10/28/19 03/08/20 History metoprolol succinate 50 mg PO HS 10/28/19 03/08/20 History potassium chloride 20 meq PO BID 10/28/19 03/08/20 History warfarin [Jantoven] 5 mg PO SUTUTHSA 10/28/19 03/08/20 History famotidine [Pepcid] 20 mg PO DAILY #30 tab 10/29/19 03/08/20 Rx warfarin 2.5 mg PO MOWEFR 03/08/20 03/08/20 History Past Med/Surg History Medical History Atrial fibrillation (Chronic) CHF (congestive heart failure) CKD (chronic kidney disease), stage III (Chronic) Fracture of proximal end of right humerus HTN (hypertension) (Chronic) Shoulder pain, acute Surgical History H/O hernia repair (Chronic) H/O: hysterectomy (Chronic) History of colonoscopy History of colposcopy (Inactive) History of right shoulder replacement Status post repair of paraesophageal diaphragmatic hernia Family History Mother Alzheimer disease Social History Preferred Language: [place]bour[place] Communication Ability: Effective Java Designer Required: No Beliefs That Will Affect Care: None Current Living Situation: Family Current Living Situation Comment: Son lives with her Other Information That Helps Us Care for You: No Feels Safe at Home: Yes Safety Concerns: Feels Safe At This Time Smoking Status: Never smoker Hx Alcohol Use: No Hx Substance Use: No Review of Systems Review of Systems: All systems reviewed & are unremarkable except as noted in HPI & below Physical Exam Physical Exam: Constitutional: WD/WN,F, vitals as above, NAD, sitting up in bed, pleasant, conversing easily Head: Normocephalic, Atraumatic Eyes: PERRL, conjunctivae normal, anicteric sclerae ENMT: external ear and nose normal, oropharynx normal Neck: trachea midline, no thyromegaly normal visual inspection Respiratory: normal respiratory effort, lungs clear to auscultation, no wheeze, rales, rhonchi. Normal insp/exp effort, no accessory muscle use Cardiovascular: IRR/IRR, no murmur, b/l lower extremity taunt edema extending prox to thighs Vessels: no JVD or carotid bruit Chest: normal inspection of chest Abdomen:distended abd 2/2 to obesity, protuberant, normal bowel sounds, firm, nontender, no hepatosplenomegaly appreciated Musculoskeletal: no cyanosis or clubbing, extremities motor strength 5/5 Skin: no rashes, warm and dry normal turgor Neurologic: PERRL, EOMI, accommodation nl, no face palsy, no dysarthria CN's II-XI intact bilaterally and moves all extremities Psychiatric: A+Ox3, euthymic affect Lymphatic: no cervical or axillary lymphadenopathy : deferred Results & Data Results & Data ([facility]) Vital Signs (Past 12 Hours) Vital Signs Temp Pulse Pulse Resp BP BP Pulse Ox 03/08/20 13:43 68 20 129/87 95 03/08/20 12:28 62 20 114/81 94 03/08/20 11:45 93 03/08/20 11:26 72 62 24 142/77 H 93 03/08/20 11:05 36.8 C 67 18 157/85 H 98 Laboratory Results Short CBC 03/08/20 Range/Units 11:34 WBC 7.23 (4.8-10.8) K/uL Hgb 12.5 (12.0-16.0) g/dL Hct 38.5 (37-47) % Plt Count 277 (130-400) K/uL BMP 03/08/20 11:34 Sodium 140 Potassium 4.4 Chloride 109 H Carbon Dioxide 24 BUN 21 H Creatinine 1.27 H Glucose 102 H Calcium 9.2 Cardiac Enzymes 03/08/20 Range/Units 11:34 Troponin I < 0.015 (0-0.045) ng/ml Liver Function 03/08/20 Range/Units 11:34 Total Bilirubin 0.5 (0.2-1) mg/dl AST 20 (15-37) U/L ALT 24 (12-78) U/L Alkaline Phosphatase 117 (45-117) U/L Albumin 3.5 (3.4-5.0) gm/dl Diagnostic Findings CXR: IMPRESSION: Stable cardiomegaly and mild congestive change. Medications Administered Discontinued Medications Furosemide (Lasix) 100 mg IV NOW STA Stop: 03/08/20 12:10 Last Admin: 03/08/20 13:44 Dose: 100 mg Documented by: [id number] ECG Rate (beats per minute): 74 Rhythm: atrial fibrillation Code Status & VTE Plan Code Status Full Code VTE Prophylaxis Plan VTE Prophylaxis will be ordered: Yes Supervising Physician Co-Signing Physician Notes ATTENDING ADDENDUM : pt seen and examined , care co ordniated with Thelma HAMM this is a 80 yo F with hx of CHF with diastolic heart failure , chronic Afib , presented with volume overload , decompensated CHF Physical exam: as per Thelma HAMM Acute heart failure with preserved ejection fraction (HFpEF ordered for aggresive diuresis with Lasix 100 mg BID IV ( was on 80 mg daily PO Lasix ) repeat ECHO cardiology eval requested monitor vol status -daily wt , intake and output chronic afib : rate controlled on metoprolol -cont on coumadin for anticoagulation , INR theraputic CKD stage 3 : baseline cr 1.2 follow PRP while getting IV lasix please refer to further documentation by Geri Crawford PA-C for discussion of other chronic issues Fina Lanier MD
[2020-03-08] MEDS ORDERED: ACETAMINOPHEN 325 MG TAB PO PRN (18:44)
[2020-03-08] MEDS ORDERED: MAGNESIUM HYDROXIDE SUSP 30 ML UDC PO PRN (18:44)
[2020-03-08] MEDS ORDERED: ALUMINUM/MAGNESIUM SUSP 30 ML UDC PO PRN (18:44)
[2020-03-08] MEDS ORDERED: POLYETHYLENE (MIRALAX) 17 GM PACK PO PRN (18:44)
[2020-03-08] MEDS ORDERED: ONDANSETRON INJ 2 MG/ML 2 ML VIAL IV PRN (18:44)
[2020-03-08] MEDS: FUROSEMIDE 100 MG in SYRINGE 0 ML IV SCH (20:01)
[2020-03-08] MEDS: ATORVASTATIN 20 MG TAB PO SCH (20:03)
[2020-03-08] MEDS: METOPROLOL SUCC 50MG EXT REL TAB PO SCH (20:03)
[2020-03-08] MEDS: POTASSIUM CHLORIDE 20 MEQ TABCR PO SCH (20:03)
[2020-03-08] MEDS: DICLOFENAC SOD 1% GEL 100 GM TUBE EXT SCH (20:04)
[2020-03-08] MEDS ORDERED: FUROSEMIDE 40 MG/4 ML VIAL IV SCH (21:00)
[2020-03-08] MEDS ORDERED: LOSARTAN POTASSIUM 25 MG TAB PO SCH (21:00)
--- NOTE | 2020-03-08 21:57 | Electrocardiogram Report ---
Test Reason : Blood Pressure : / mmHG Vent. Rate : 074 BPM Atrial Rate : 102 BPM P-R Int : 000 ms QRS Dur : 086 ms QT Int : 400 ms P-R-T Axes : 000 -32 077 degrees QTc Int : 444 ms Atrial fibrillation Left axis deviation Low voltage QRS Possible Inferior infarct , age undetermined Nonspecific T wave abnormality Abnormal ECG When compared with ECG of 28-Oct-2019 23:16, No significant change Confirmed by Tenzin Sorto ([id number]) on 03/08/2020 9:56:34 PM Referred By: ED Confirmed By:Tenzin Sorto
[2020-03-09 06:46] LABS: INR 2.8 (0.9-1.1); Prothrombin Time 27.7 Seconds (9.0-12.0)
[2020-03-09 07:03] LABS: BUN Creatinine Ratio 17.2 (10-20); Creatinine Clr Calc Pharmacy 42.6 ml/min; Est GFR (African American) 42.7; Est GFR (Non-African American) 36.8; Magnesium 2.4 mg/dl (1.8-2.4); Potassium 3.6 mmol/L (3.5-5.1)
[2020-03-09] MEDS: POTASSIUM CHLORIDE 20 MEQ TABCR PO SCH ×2 (08:43→21:33)
[2020-03-09] MEDS: ASPIRIN 81 MG ECTAB PO SCH (08:43)
[2020-03-09] MEDS: FUROSEMIDE 100 MG in SYRINGE 0 ML IV SCH ×2 (08:43→16:14)
[2020-03-09] MEDS: DICLOFENAC SOD 1% GEL 100 GM TUBE EXT SCH ×2 (08:43→21:12)
[2020-03-09] MEDS: FAMOTIDINE 20 MG TAB PO SCH (08:43)
[2020-03-09 09:08] LABS: Estimated Average Glucose 143 mg/dl; Hemoglobin A1C 6.6 % (4.5-5.6)
--- NOTE | 2020-03-09 12:41 | Cardiology Consultation ---
Date of Consultation March 09, 2020 Assessment & Plan (1) Acute heart failure with preserved ejection fraction (HFpEF): (2) Atrial fibrillation: (3) Diabetes: Recommend continue diuresis. The patient has seen the dietitian. Weight loss would be in her best interest. History of Present Illness Attending Physician: Tony Ramos MD History of Present Illness This is an 80-year-old female with a history of obesity, chronic atrial fibrillation after a failed ablation, and diastolic heart failure. She is noticed some increased shortness of breath and lower extremity edema for the past several days. She is also noted that she has gained weight. She has been admitted with acute on chronic diastolic heart failure and volume overload. She has no complaints of chest pain. No heart palpitations, dizziness or lightheadedness. Past medical history: 1.Diastolic congestive heart failure 2.History of unsuccessful direct current cardioversion in May 2015 with transient use of sotalol (without repeat cardioversion), status post pulmonary vein isolation ablation in June 2015 - now with persistent atrial fibrillation managed with rate control and chronic coumadin anticoagulation 3.Hypertension 4.History of TIA/CVA 5.Dyspnea on exertion. Allergies Allergy/AdvReac Type Severity Reaction Status Date / Time latex Allergy Unknown Rash, Verified 10/28/19 23:09 itching, blisters morphine AdvReac Severe abdominal Verified 10/28/19 23:09 pain codeine AdvReac Mild NAUSEA,ABD Verified 10/28/19 23:09 PAIN oxycodone AdvReac Mild OPIATE Verified 10/28/19 23:09 AGONSITS = NAUSEA AND ABD PAIN Home Medications Home Medications Medication Instructions Recorded Confirmed Type aspirin [Aspir-81] 81 mg PO DAILY 10/28/19 03/08/20 History atorvastatin 20 mg PO HS 10/28/19 03/08/20 History diclofenac sodium [Voltaren] 2 g TOPICAL BID 10/28/19 03/08/20 History ergocalciferol (vitamin D2) 1,250 mcg PO WK 10/28/19 03/08/20 History [Vitamin D2] furosemide [Lasix] 80 mg PO DAILY 10/28/19 03/08/20 History losartan 25 mg PO HS 10/28/19 03/08/20 History metoprolol succinate 50 mg PO HS 10/28/19 03/08/20 History potassium chloride 20 meq PO BID 10/28/19 03/08/20 History warfarin [Jantoven] 5 mg PO SUTUTHSA 10/28/19 03/08/20 History famotidine [Pepcid] 20 mg PO DAILY #30 tab 10/29/19 03/08/20 Rx warfarin 2.5 mg PO MOWEFR 03/08/20 03/08/20 History Patient History Medical History Atrial fibrillation (Chronic) CHF (congestive heart failure) CKD (chronic kidney disease), stage III (Chronic) Fracture of proximal end of right humerus HTN (hypertension) (Chronic) Shoulder pain, acute Surgical History H/O hernia repair (Chronic) H/O: hysterectomy (Chronic) History of colonoscopy History of colposcopy (Inactive) 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 Physical Exam Physical Exam: General: Morbidly obese Head: normocephalic, no masses, lesions, tenderness or abnormalities Eyes: conjunctiva are pink and non-injected, sclera clear Neck: supple, no adenopathy, no bruits, normal jugular venous pulse, no hepatojugular reflux Chest: normal shape and normal respiratory effort Lungs: clear to auscultation and percussion Cardiac Exam: -Irregular rate & rhythm, no murmurs gallops or rubs - normal S1, normal S2 Pulses: 2(+) throughout Abdomen: abdomen soft, non-tender, no abnormal masses and no hepatosplenomegaly Musculoskeletal: no gait disturbance, no joint inflammation, no deforming arthritis Extremities: Lower extremity edema Neuro: grossly normal exam Results & Data ([facility]) Vital Signs (Past 12 Hours) Vital Signs Temp Pulse Resp BP Pulse Ox 03/09/20 11:47 36.5 C 89 18 129/63 93 03/09/20 09:04 36.4 C L 88 19 134/79 96 03/09/20 04:49 36.6 C 89 18 132/79 94 Laboratory Results Laboratory Results - last 24 hr 03/08/20 03/09/20 03/09/20 11:34 05:57 05:57 PT 27.7 H INR 2.8 H Sodium 140 Potassium 3.6 D Chloride 105 Carbon Dioxide 27 Anion Gap 8.0 BUN 23 H Creatinine 1.34 H Est Cr Clr Drug Dosing 42.6 Est GFR ( Amer) 42.7 Est GFR (Non-Af Amer) 36.8 BUN/Creatinine Ratio 17.2 Glucose 115 H Estimat Average Glucose Hemoglobin A1c Calcium 9.0 Magnesium 2.4 NT-Pro-B Natriuret Pep 2384 H 03/09/20 05:57 PT INR Sodium Potassium Chloride Carbon Dioxide Anion Gap BUN Creatinine Est Cr Clr Drug Dosing Est GFR ( Amer) Est GFR (Non-Af Amer) BUN/Creatinine Ratio Glucose Estimat Average Glucose 143 Hemoglobin A1c 6.6 H Calcium Magnesium NT-Pro-B Natriuret Pep Medications Administered Current Inpatient Medications Acetaminophen (Tylenol) 650 mg PO Q4H PRN PRN Reason: Pain or Fever Stop: 04/07/20 18:43 Al Hydrox/Mg Hydrox/Simethicone (Maalox) 15 ml PO Q4H PRN PRN Reason: Dyspepsia Stop: 04/07/20 18:43 Aspirin (Ecotrin Ectab) 81 mg PO DAILY [facility] Stop: 04/08/20 08:59 Last Admin: 03/09/20 08:43 Dose: 81 mg Documented by: Atorvastatin Calcium (Lipitor) 20 mg PO HS [facility] Stop: 04/07/20 20:59 Last Admin: 03/08/20 20:03 Dose: 20 mg Documented by: Diclofenac Sodium (Voltaren 1% Top) 2 gm EXT BID [facility] Stop: 04/07/20 20:59 Last Admin: 03/09/20 08:43 Dose: Not Given Documented by: Famotidine (Pepcid) 20 mg PO DAILY [facility] Stop: 04/08/20 08:59 Last Admin: 03/09/20 08:43 Dose: Not Given Documented by: Furosemide 100 mg/ Syringe 10 mls @ 4 mls/min IV BID17 [facility] Stop: 04/07/20 19:14 Last Admin: 03/09/20 08:43 Dose: 4 mls/min Documented by: Losartan Potassium (Cozaar) 25 mg PO [facility] Stop: 04/07/20 20:59 Last Admin: 03/08/20 20:02 Dose: 25 mg Documented by: Magnesium Hydroxide (Milk Of Magnesia) 30 ml PO Q12H PRN PRN Reason: Constipation Stop: 04/07/20 18:43 Metoprolol Succinate (Toprol Xl) 50 mg PO [facility] Stop: 04/07/20 20:59 Last Admin: 03/08/20 20:03 Dose: 50 mg Documented by: Ondansetron HCl (Zofran) 4 mg IV Q6H PRN PRN Reason: Nausea Stop: 04/07/20 18:43 Polyethylene Glycol (Miralax Powder Packet) 17 gm PO DAILY PRN PRN Reason: Constipation Stop: 04/07/20 18:43 Potassium Chloride (Klor-Con M20) 20 meq PO BID [facility] Stop: 04/07/20 20:59 Last Admin: 03/09/20 08:43 Dose: 20 meq Documented by: Warfarin Sodium (Coumadin) 5 mg PO SuTuThSa@1600 [facility] Stop: 04/09/20 15:59 Warfarin Sodium (Coumadin) 2.5 mg PO MoWeFr@1600 [facility] Stop: 04/08/20 15:59
[2020-03-09] MEDS: WARFARIN SOD 2.5 MG TAB PO SCH (16:13)
[2020-03-09] MEDS: METOPROLOL SUCC 50MG EXT REL TAB PO SCH (21:34)
[2020-03-09] MEDS: ATORVASTATIN 20 MG TAB PO SCH (21:34)
--- NOTE | 2020-03-09 22:57 | Internal Medicine Consult Note ---
Date of Consultation March 09, 2020 History of Present Illness Attending Physician: Tony Ramos MD Allergies Allergy/AdvReac Type Severity Reaction Status Date / Time latex Allergy Unknown Rash, Verified 10/28/19 23:09 itching, blisters morphine AdvReac Severe abdominal Verified 10/28/19 23:09 pain codeine AdvReac Mild NAUSEA,ABD Verified 10/28/19 23:09 PAIN oxycodone AdvReac Mild OPIATE Verified 10/28/19 23:09 AGONSITS = NAUSEA AND ABD PAIN Home Medications Home Medications Medication Instructions Recorded Confirmed Type aspirin [Aspir-81] 81 mg PO DAILY 10/28/19 03/08/20 History atorvastatin 20 mg PO HS 10/28/19 03/08/20 History diclofenac sodium [Voltaren] 2 g TOPICAL BID 10/28/19 03/08/20 History ergocalciferol (vitamin D2) 1,250 mcg PO WK 10/28/19 03/08/20 History [Vitamin D2] furosemide [Lasix] 80 mg PO DAILY 10/28/19 03/08/20 History losartan 25 mg PO HS 10/28/19 03/08/20 History metoprolol succinate 50 mg PO HS 10/28/19 03/08/20 History potassium chloride 20 meq PO BID 10/28/19 03/08/20 History warfarin [Jantoven] 5 mg PO SUTUTHSA 10/28/19 03/08/20 History famotidine [Pepcid] 20 mg PO DAILY #30 tab 10/29/19 03/08/20 Rx warfarin 2.5 mg PO MOWEFR 03/08/20 03/08/20 History Patient History Medical History Atrial fibrillation (Chronic) CHF (congestive heart failure) CKD (chronic kidney disease), stage III (Chronic) Fracture of proximal end of right humerus HTN (hypertension) (Chronic) Shoulder pain, acute Surgical History H/O hernia repair (Chronic) H/O: hysterectomy (Chronic) History of colonoscopy History of colposcopy (Inactive) History of right shoulder replacement Status post repair of paraesophageal diaphragmatic hernia Family History Mother Alzheimer disease Social History Preferred Language: Malaysian Communication Ability: Effective Repairer Wood Furniture Required: No Beliefs That Will Affect Care: None Current Living Situation: Family Current Living Situation Comment: Son lives with her Other Information That Helps Us Care for You: No Feels Safe at Home: Yes Safety Concerns: Feels Safe At This Time Smoking Status: Never smoker Hx Alcohol Use: No Hx Substance Use: No Results & Data Vital Signs (Past 12 Hours) Vital Signs Temp Pulse Pulse Resp BP Pulse Ox 03/09/20 19:07 37.0 C 86 17 114/72 91 03/09/20 17:21 77 03/09/20 15:41 36.5 C 79 18 123/80 97 03/09/20 11:47 36.5 C 89 18 129/63 93
[2020-03-10 06:06] LABS: INR 2.2 (0.9-1.1); Prothrombin Time 22.4 Seconds (9.0-12.0)
[2020-03-10 06:25] LABS: Calcium 8.8 mg/dl (8.5-10.1); Creatinine Clr Calc Pharmacy 49.6 ml/min; Est GFR (African American) 51.3; Est GFR (Non-African American) 44.3; Potassium 3.4 mmol/L (3.5-5.1)
--- NOTE | 2020-03-10 07:47 | Hospitalist Progress Note ---
Date of Service March 09, 2020 Assessment & Plan (1) Acute heart failure with preserved ejection fraction (HFpEF): History of chronic left ventricular diastolic heart failure. Presented with acute exacerbation associated with 23 lb weight gain. Receiving IV furosemide with improvement. Cardiology consulted. Echo showed mild concentric LVH, LVEF 55-60%, severely dilated LA, moderate- severe dilatation RA, normal RV systolic function, mild MR. Continue diuretics. (2) Atrial fibrillation: Chronic atrial fibrillation, s/p failed ablation. Rate control with metoprolol. Anticoagulation with warfarin. (3) HTN (hypertension): Continue metoprolol and losartan. (4) Cerebrovascular disease: Remote history of stroke without residual. Continue aspirin, warfarin, statin. (5) CKD (chronic kidney disease), stage III: Serum creatinine today = 1.34. Monitor closely with diuretic therapy. (6) Diabetes: History of prediabetes / borderline DM type 2. Last Hgb A1c in clinic was 6.5. (7) Dyslipidemia: Continue atorvastatin. (8) DVT prophylaxis: Warfarin. Ambulate. (9) Discharge planning issues: Anticipated discharge to home. Family Medicine follow-up with Dr. Coates. Admission and Anticipated Discharge Date Admission Date: March 08, 2020 Subjective Recheck for CHF and other problems. Patient seen in their room around 1600. Admitted yesterday with CHF. Pt reports recent wt gain of 23 lbs. Receiving IV furosemide with good diuresis. Less SOB. No chest pain. Review of Systems: Constitutional- no fever. Cardiac- as noted above. Pulmonary- no cough or SOB. GI- no nausea, vomiting, diarrhea, melena, hematochezia. - no urinary symptoms. Otherwise, as noted above. Physical Exam Constitutional: no acute distress Respiratory: no respiratory distress Auscultation: + rales (few bibasilar) Cardiovascular: Rate/Rhythm: + irregularly irregular Heart Sounds: + murmur (exam limited); no gallop and no cardiac rub Vessels: + JVD Extremities: + edema (1+ pretibial); no calf tenderness Gastrointestinal (Abdomen): normal bowel sounds, soft, nontender, no hepatosplenomegaly Musculoskeletal: Extremities: no cyanosis Skin: no rashes, warm and dry Psychiatric: Orientation: alert and oriented x 3 Results & Data Results & Data ([facility]) Vital Signs (Past 12 Hours) Vital Signs Temp Pulse Resp BP Pulse Ox 03/10/20 03:35 36.4 C L 81 20 127/85 94 03/09/20 23:10 36.3 C L 76 18 113/74 93 Diagnostic Findings PORTABLE CHEST X-RAY Reviewed by the undersigned and formally interpreted by Radiology: FINDINGS: There is a right shoulder prosthesis. No pneumothorax. No pleural effusions. The heart remains enlarged. A few linear densities within the lungs favor scarring or atelectasis. This is similar to the prior study. No new focal lung consolidations to suggest pneumonia. Mild interstitial thickening favors congestive change. This is similar to the prior study. IMPRESSION: Stable cardiomegaly and mild congestive change. ACT 112: Negative or not required by law. Electronically signed by: Curtis Vega M.D. 03/08/2020 12:44 PM
[2020-03-10] MEDS: POTASSIUM CHLORIDE 20 MEQ TABCR PO SCH ×2 (07:50→20:07)
[2020-03-10] MEDS: ASPIRIN 81 MG ECTAB PO SCH (07:50)
[2020-03-10] MEDS: FAMOTIDINE 20 MG TAB PO SCH (07:51)
[2020-03-10] MEDS: FUROSEMIDE 100 MG in SYRINGE 0 ML IV SCH ×2 (09:59→16:35)
[2020-03-10] MEDS: DICLOFENAC SOD 1% GEL 100 GM TUBE EXT SCH ×2 (10:00→20:08)
--- NOTE | 2020-03-10 16:18 | Cardiology Progress Note ---
Date of Service March 10, 2020 Assessment & Plan (1) Acute heart failure with preserved ejection fraction (HFpEF): NR today is 2.2. Continue current treatment. Subjective Patient seen in follow-up of volume overload. She has a history of chronic atrial fibrillation diastolic heart failure. Echocardiogram performed 03/09/2020 revealed normal LVEF, severe left atrial dilatation, moderate to severe right atrial dilatation and mild mitral regurgitation. She states that she has felt significantly improved since receiving IV diuretics, with urine output of 3.7 L on 03/09, 2.3 L on 03/10. Physical Exam Physical Exam: Temp Pulse Resp BP Pulse Ox 36.6 C 81 16 115/73 93 03/10/20 15:10 03/10/20 15:10 03/10/20 15:10 03/10/20 15:10 03/10/20 15:10 Constitutional: WD/WN, vitals as above Respiratory: normal respiratory effort, lungs clear to auscultation Cardiovascular: Rate/Rhythm: + irregularly irregular Heart Sounds: no murmur Vessels: + JVD Extremities: + edema (Trace lower extremity edema, varicose veins) Gastrointestinal (Abdomen): normal bowel sounds, soft, nontender, no hepatosplenomegaly Neurologic: PERRL, EOMI, accommodation nl, no face palsy, no dysarthria Results & Data Vital Signs (Past 12 Hours) Vital Signs Temp Pulse Resp BP Pulse Ox 03/10/20 15:10 36.6 C 81 16 115/73 93 03/10/20 11:36 36.5 C 84 19 124/83 94 03/10/20 07:48 36.5 C 74 18 126/77 93 Laboratory Results Coagulation 03/10/20 Range/Units 04:40 PT 22.4 H (9.0-12.0) Seconds Comprehensive Metabolic Panel 03/10/20 Range/Units 04:40 Sodium 143 (136-145) mmol/L Potassium 3.4 L (3.5-5.1) mmol/L Chloride 109 H (98-107) mmol/L Carbon Dioxide 27 (21-32) mmol/L BUN 28 H (7-18) mg/dl Creatinine 1.15 (0.6-1.2) mg/dl Glucose 106 H (70-99) mg/dl Calcium 8.8 (8.5-10.1) mg/dl Intake and Output 03/10/20 03/10/20 03/10/20 06:59 14:59 22:59 Intake Total 650 / 650 Output Total 200 / 2300 750 / 750 Balance -200 / -1520 -100 / -100 Intake: Oral 650 / 650 Output: Urine 200 / 2300 750 / 750 Other: # Unmeasured Voids 1 Weight 121.2 kg Patient Weight 03/11/20 06:59 Weight 121.2 kg Diagnostic Findings Telemetry reveals atrial fibrillation at 80 bpm, ventricular rates up to 120 bpm with exertion such as walking to the bathroom Medications Administered Current Inpatient Medications Acetaminophen (Tylenol) 650 mg PO Q4H PRN PRN Reason: Pain or Fever Stop: 04/07/20 18:43 Al Hydrox/Mg Hydrox/Simethicone (Maalox) 15 ml PO Q4H PRN PRN Reason: Dyspepsia Stop: 04/07/20 18:43 Aspirin (Ecotrin Ectab) 81 mg PO DAILY [facility] Stop: 04/08/20 08:59 Last Admin: 03/10/20 07:50 Dose: 81 mg Documented by: Atorvastatin Calcium (Lipitor) 20 mg PO [facility] Stop: 04/07/20 20:59 Last Admin: 03/09/20 21:34 Dose: 20 mg Documented by: Diclofenac Sodium (Voltaren 1% Top) 2 gm EXT BID [facility] Stop: 04/07/20 20:59 Last Admin: 03/10/20 10:00 Dose: Not Given Documented by: Famotidine (Pepcid) 20 mg PO DAILY [facility] Stop: 04/08/20 08:59 Last Admin: 03/10/20 07:51 Dose: 20 mg Documented by: Furosemide 100 mg/ Syringe 10 mls @ 4 mls/min IV BID17 [facility] Stop: 04/07/20 19:14 Last Admin: 03/10/20 09:59 Dose: 4 mls/min Documented by: Losartan Potassium (Cozaar) 25 mg PO [facility] Stop: 04/07/20 20:59 Last Admin: 03/08/20 20:02 Dose: 25 mg Documented by: Magnesium Hydroxide (Milk Of Magnesia) 30 ml PO Q12H PRN PRN Reason: Constipation Stop: 04/07/20 18:43 Metoprolol Succinate (Toprol Xl) 50 mg PO [facility] Stop: 04/07/20 20:59 Last Admin: 03/09/20 21:34 Dose: 50 mg Documented by: Ondansetron HCl (Zofran) 4 mg IV Q6H PRN PRN Reason: Nausea Stop: 04/07/20 18:43 Polyethylene Glycol (Miralax Powder Packet) 17 gm PO DAILY PRN PRN Reason: Constipation Stop: 04/07/20 18:43 Potassium Chloride (Klor-Con M20) 20 meq PO BID [facility] Stop: 04/07/20 20:59 Last Admin: 03/10/20 07:50 Dose: 20 meq Documented by: Warfarin Sodium (Coumadin) 5 mg PO SuTuThSa@1600 [facility] Stop: 04/09/20 15:59 Warfarin Sodium (Coumadin) 2.5 mg PO MoWeFr@1600 [facility] Stop: 04/08/20 15:59 Last Admin: 03/09/20 16:13 Dose: 2.5 mg Documented by:
[2020-03-10] MEDS: WARFARIN SOD 5 MG TAB PO SCH (16:35)
--- NOTE | 2020-03-10 18:50 | Hospitalist Progress Note ---
Date of Service March 10, 2020 Assessment & Plan (1) Acute heart failure with preserved ejection fraction (HFpEF): History of chronic left ventricular diastolic heart failure. Presented with acute exacerbation associated with 23 lb weight gain. Receiving IV furosemide with improvement. Cardiology consulted. Echo showed mild concentric LVH, LVEF 55-60%, severely dilated LA, moderate- severe dilatation RA, normal RV systolic function, mild MR. Wt 124 --> 121.2 kg. Continue diuretics. (2) Atrial fibrillation: Chronic atrial fibrillation, s/p failed ablation. Rate control with metoprolol. Anticoagulation with warfarin. (3) HTN (hypertension): Continue metoprolol and losartan. (4) Cerebrovascular disease: Remote history of stroke without residual. Continue aspirin, warfarin, statin. (5) CKD (chronic kidney disease), stage III: Serum creatinine today = 1.15. Monitor closely with diuretic therapy. (6) Diabetes: History of prediabetes / borderline DM type 2. Last Hgb A1c in clinic was 6.5. Hgb here = 6.6. FBS today = 106. (7) Dyslipidemia: Continue atorvastatin. (8) DVT prophylaxis: Warfarin. Ambulate. (9) Discharge planning issues: Anticipated discharge to home. Family Medicine follow-up with Dr. Coates. Admission and Anticipated Discharge Date Admission Date: March 08, 2020 Subjective Recheck for CHF and other problems. Patient seen in their room around 1120. Receiving IV furosemide with good diuresis. Less SOB. No chest pain. Less edema. Review of Systems: Constitutional- no fever. Cardiac- as noted above. Pulmonary- no cough or SOB. GI- no nausea, vomiting, diarrhea, melena, hematochezia. - no urinary symptoms. Otherwise, as noted above. Physical Exam Constitutional: no acute distress Respiratory: no respiratory distress Auscultation: no rales Cardiovascular: Rate/Rhythm: + irregularly irregular Heart Sounds: no gallop, no murmur (exam limited) and no cardiac rub Vessels: + JVD Extremities: + edema (1+ pretibial); no calf tenderness Gastrointestinal (Abdomen): normal bowel sounds, soft, nontender, no hepatosplenomegaly Musculoskeletal: Extremities: no cyanosis Skin: no rashes, warm and dry Psychiatric: Orientation: alert and oriented x 3 Results & Data Results & Data ([facility]) Vital Signs (Past 12 Hours) Vital Signs Temp Pulse Resp BP Pulse Ox 06/27/20 15:10 36.6 C 81 16 115/73 93 03/10/20 11:36 36.5 C 84 19 124/83 94 03/10/20 07:48 36.5 C 74 18 126/77 93 Laboratory Results Laboratory Results - last 24 hr 03/10/20 03/10/20 04:40 04:40 PT 22.4 H INR 2.2 H Sodium 143 Potassium 3.4 L Chloride 109 H Carbon Dioxide 27 Anion Gap 7.0 BUN 28 H Creatinine 1.15 Est Cr Clr Drug Dosing 49.6 Est GFR ( Amer) 51.3 Est GFR (Non-Af Amer) 44.3 BUN/Creatinine Ratio 24.0 H Glucose 106 H Calcium 8.8
[2020-03-10] MEDS ORDERED: POTASSIUM CHLORIDE 20 MEQ TABCR PO ONE (19:15)
[2020-03-10] MEDS: METOPROLOL SUCC 50MG EXT REL TAB PO SCH (20:08)
[2020-03-10] MEDS: ATORVASTATIN 20 MG TAB PO SCH (20:08)
[2020-03-11 06:01] LABS: Prothrombin Time 20.6 Seconds (9.0-12.0)
[2020-03-11 06:17] LABS: BUN Creatinine Ratio 22.8 (10-20); Calcium 8.5 mg/dl (8.5-10.1); Est GFR (African American) 49.7; Est GFR (Non-African American) 42.9; Potassium 3.7 mmol/L (3.5-5.1)
[2020-03-11] MEDS: POTASSIUM CHLORIDE 20 MEQ TABCR PO SCH ×2 (08:18→20:34)
[2020-03-11] MEDS: ASPIRIN 81 MG ECTAB PO SCH (08:18)
[2020-03-11] MEDS: FUROSEMIDE 100 MG in SYRINGE 0 ML IV SCH ×2 (08:18→18:00)
[2020-03-11] MEDS: FAMOTIDINE 20 MG TAB PO SCH (08:19)
[2020-03-11] MEDS: DICLOFENAC SOD 1% GEL 100 GM TUBE EXT SCH ×2 (08:22→20:34)
--- NOTE | 2020-03-11 14:47 | Cardiology Progress Note ---
Date of Service March 11, 2020 Assessment & Plan (1) Acute heart failure with preserved ejection fraction (HFpEF): History of permanent atrial fibrillation, INR 2 today, continue current dose of Coumadin. Renal function is stable, electrolytes stable. Continue IV furosemide today. Her prior to hospital dose of furosemide was 80 mg daily. We will consider transition to torsemide, 60 mg daily at discharge tomorrow. Subjective Feeling improved, speaking on the phone. X-ray reveals atrial fibrillation, rate controlled in the 80 bpm range. Physical Exam Physical Exam: Temp Pulse Resp BP Pulse Ox 36.8 C 84 18 107/75 93 03/11/20 11:42 03/11/20 11:42 03/11/20 11:42 03/11/20 11:42 03/11/20 11:42 Constitutional: WD/WN, vitals as above Respiratory: normal respiratory effort, lungs clear to auscultation Cardiovascular: Rate/Rhythm: regular rate and regular rhythm Extremities: + edema (Trace lower extremity edema) Gastrointestinal (Abdomen): normal bowel sounds, soft, nontender, no hepatosplenomegaly Neurologic: PERRL, EOMI, accommodation nl, no face palsy, no dysarthria Results & Data Vital Signs (Past 12 Hours) Vital Signs Temp Pulse Resp BP Pulse Ox 03/11/20 11:42 36.8 C 84 18 107/75 93 03/11/20 07:58 36.7 C 86 18 120/74 95 03/11/20 04:51 36.5 C 77 18 127/70 94 Laboratory Results Coagulation 03/11/20 Range/Units 05:32 PT 20.6 H (9.0-12.0) Seconds Comprehensive Metabolic Panel 03/11/20 Range/Units 05:32 Sodium 144 (136-145) mmol/L Potassium 3.7 (3.5-5.1) mmol/L Chloride 109 H (98-107) mmol/L Carbon Dioxide 29 (21-32) mmol/L BUN 27 H (7-18) mg/dl Creatinine 1.18 (0.6-1.2) mg/dl Glucose 105 H (70-99) mg/dl Calcium 8.5 (8.5-10.1) mg/dl Intake and Output 03/10/20 03/11/20 03/11/20 22:59 06:59 14:59 Intake Total 260 / 910 480 / 480 Output Total 1050 / 1800 700 / 700 Balance -790 / -890 -220 / -220 Intake: Oral 60 / 710 480 / 480 Tube Feeding 200 / 200 Output: Urine 1050 / 1800 700 / 700 Other: Weight 121.3 kg
[2020-03-11] MEDS: WARFARIN SOD 5 MG TAB PO SCH (16:08)
--- NOTE | 2020-03-11 18:39 | Hospitalist Progress Note ---
Date of Service March 11, 2020 Assessment & Plan (1) Acute heart failure with preserved ejection fraction (HFpEF): History of chronic left ventricular diastolic heart failure. Presented with acute exacerbation associated with 23 lb weight gain. Receiving IV furosemide with improvement. Cardiology consulted. Echo showed mild concentric LVH, LVEF 55-60%, severely dilated LA, moderate-severe dilatation RA, normal RV systolic function, mild MR. Wt 124 --> 121.3 kg. Continue diuretics. (2) Atrial fibrillation: Chronic atrial fibrillation, s/p failed ablation. Rate control with metoprolol. Anticoagulation with warfarin. (3) HTN (hypertension): Continue metoprolol and losartan. (4) Cerebrovascular disease: Remote history of stroke without residual. Continue aspirin, warfarin, statin. (5) CKD (chronic kidney disease), stage III: Serum creatinine today = 1.18. Monitor closely with diuretic therapy. (6) Diabetes: History of prediabetes / borderline DM type 2. Last Hgb A1c in clinic was 6.5. Hgb here = 6.6. FBS today = 105. (7) Dyslipidemia: Continue atorvastatin. (8) DVT prophylaxis: On warfarin with therapeutic INR. Ambulating. (9) Discharge planning issues: Anticipated discharge to home. Family Medicine follow-up with Dr. Coates. Admission and Anticipated Discharge Date Admission Date: March 08, 2020 Subjective Recheck for CHF and other problems. Patient seen in their room around 1020. Feels better. Less SOB. No chest pain. Less edema. Review of Systems: Constitutional- no fever. Cardiac- as noted above. Pulmonary- no cough or SOB. GI- no nausea, vomiting, diarrhea, melena, hematochezia. - no urinary symptoms. Otherwise, as noted above. Physical Exam Constitutional: no acute distress Respiratory: no respiratory distress Auscultation: no rales Cardiovascular: Rate/Rhythm: + irregularly irregular Heart Sounds: no gallop, no murmur (exam limited) and no cardiac rub Vessels: + JVD Extremities: + edema (1+ pretibial); no calf tenderness Gastrointestinal (Abdomen): normal bowel sounds, soft, nontender, no hepatosplenomegaly Musculoskeletal: Extremities: no cyanosis Skin: no rashes, warm and dry Psychiatric: Orientation: alert and oriented x 3 Results & Data Results & Data ([facility]) Vital Signs (Past 12 Hours) Vital Signs Temp Pulse Pulse Resp BP Pulse Ox 06/28/20 16:05 36.5 C 81 18 122/76 94 03/11/20 11:42 36.8 C 84 18 107/75 93 03/11/20 07:58 36.7 C 86 18 120/74 95 Laboratory Results 03/11/20 05:32
[2020-03-11] MEDS: ATORVASTATIN 20 MG TAB PO SCH (20:34)
[2020-03-11] MEDS: METOPROLOL SUCC 50MG EXT REL TAB PO SCH (20:34)
[2020-03-12 05:36] LABS: INR 2.3 (0.9-1.1); Prothrombin Time 23.3 Seconds (9.0-12.0)
[2020-03-12 05:59] LABS: BUN Creatinine Ratio 22.6 (10-20); Calcium 8.8 mg/dl (8.5-10.1); Creatinine Clr Calc Pharmacy 46.9 ml/min; Est GFR (African American) 48.3; Est GFR (Non-African American) 41.6; Potassium 3.6 mmol/L (3.5-5.1)
[2020-03-12] MEDS: DICLOFENAC SOD 1% GEL 100 GM TUBE EXT SCH (08:23)
[2020-03-12] MEDS: FAMOTIDINE 20 MG TAB PO SCH (08:23)
[2020-03-12] MEDS: POTASSIUM CHLORIDE 20 MEQ TABCR PO SCH (08:23)
[2020-03-12] MEDS: FUROSEMIDE 100 MG in SYRINGE 0 ML IV SCH (08:23)
[2020-03-12] MEDS: ASPIRIN 81 MG ECTAB PO SCH (08:24)
--- NOTE | 2020-03-12 14:34 | Cardiology Progress Note ---
Date of Service March 12, 2020 Assessment & Plan (1) Acute heart failure with preserved ejection fraction (HFpEF): Acute on chronic heart failure with preserved ejection fraction Permanent atrial fibrillation Plan: Per my discussion with the patient, she confirmed that her chronic home dose of diuretic had been furosemide 80 mg daily which she had been taking on a regular basis over the last 3 months. Occasionally she was taking an additional dose of 80 mg in the afternoon, but she still had progressive fluid retention and edema. At this time, I think it is most prudent to transition her from furosemide 80 mg daily to torsemide, 20 tablets, 3 tablets or 60 mg by mouth daily. Continue prior to hospital dosing with potassium chloride 20 mEq twice daily. Will need outpatient follow-up in cardiology clinic in about 2 weeks. Subjective Patient seen in cardiology follow-up of acute on chronic diastolic heart failure. She is in good spirits, and feels that she has made significant improvement. Telemetry reveals rate controlled atrial fibrillation. Review of Systems Review of Systems: All systems reviewed & are unremarkable except as noted in HPI & below Physical Exam Physical Exam: Temp Pulse Resp BP Pulse Ox 36.9 C 79 17 125/82 93 03/12/20 11:20 03/12/20 11:20 03/12/20 11:20 03/12/20 11:20 03/12/20 11:20 Constitutional: WD/WN, vitals as above Respiratory: normal respiratory effort, lungs clear to auscultation Cardiovascular: Rate/Rhythm: + irregularly irregular Heart Sounds: no murmur Vessels: no JVD Extremities: no edema Gastrointestinal (Abdomen): normal bowel sounds, soft, nontender, no hepatosplenomegaly Neurologic: PERRL, EOMI, accommodation nl, no face palsy, no dysarthria Results & Data Vital Signs (Past 12 Hours) Vital Signs Temp Pulse Pulse Resp BP Pulse Ox 03/12/20 11:20 36.9 C 79 17 125/82 93 03/12/20 07:54 36.6 C 78 17 122/75 94 03/12/20 07:00 72 03/12/20 03:30 36.5 C 80 18 115/78 94 Laboratory Results Coagulation 03/12/20 Range/Units 05:05 PT 23.3 H (9.0-12.0) Seconds Comprehensive Metabolic Panel 03/12/20 Range/Units 05:05 Sodium 142 (136-145) mmol/L Potassium 3.6 (3.5-5.1) mmol/L Chloride 106 (98-107) mmol/L Carbon Dioxide 30 (21-32) mmol/L BUN 27 H (7-18) mg/dl Creatinine 1.21 H (0.6-1.2) mg/dl Glucose 106 H (70-99) mg/dl Calcium 8.8 (8.5-10.1) mg/dl Intake and Output 03/11/20 03/12/20 03/12/20 22:59 06:59 14:59 Intake Total 580 / 1060 0 1060 Output Total 1964 Balance -270 / -905 -415 / -905 Intake: Oral 580 / 1060 0 1060 Output: Urine 1964 Other: Other Intake Source sips Weight 121.5 kg
--- NOTE | 2020-03-12 15:09 | Hospitalist Progress Note ---
Date of Service March 12, 2020 Assessment & Plan (1) Acute heart failure with preserved ejection fraction (HFpEF): History of chronic left ventricular diastolic heart failure. Presented with acute exacerbation associated with 23 lb weight gain. Receiving IV furosemide with improvement. Cardiology consulted. Echo showed mild concentric LVH, LVEF 55-60%, severely dilated LA, moderate-severe dilatation RA, normal RV systolic function, mild MR. Wt 124 --> 121.5 kg. Discharge on torsemide 60 mg daily. Given CHF instructions. (2) Atrial fibrillation: Chronic atrial fibrillation, s/p failed ablation. Rate control with metoprolol. Anticoagulation with warfarin. (3) HTN (hypertension): Continue metoprolol and losartan. (4) Cerebrovascular disease: Remote history of stroke without residual. Continue aspirin, warfarin, statin. (5) CKD (chronic kidney disease), stage III: Serum creatinine today = 1.21. Monitor closely with diuretic therapy. (6) Diabetes: History of prediabetes / borderline DM type 2. Last Hgb A1c in clinic was 6.5. Hgb here = 6.6. FBS today = 106. (7) Dyslipidemia: Continue atorvastatin. (8) DVT prophylaxis: On warfarin with therapeutic INR. Ambulating. (9) Discharge planning issues: Discharge to home. Family Medicine follow-up with Dr. Coates. Cardiology follow-up with Satnam Ayon PA-C Admission and Anticipated Discharge Date Admission Date: March 08, 2020 Subjective Recheck for CHF and other problems. Patient seen in their room around 1500. Less SOB. No chest pain. Less edema. Ready to go home. Physical Exam Constitutional: no acute distress Respiratory: no respiratory distress Auscultation: no rales Cardiovascular: Rate/Rhythm: + irregularly irregular Heart Sounds: no gallop, no murmur (exam limited) and no cardiac rub Vessels: + JVD Extre mities: + edema (1+ pretibial); no calf tenderness Gastrointestinal (Abdomen): normal bowel sounds, soft, nontender, no hepatosplenomegaly Musculoskeletal: Extremities: no cyanosis Skin: no rashes, warm and dry Psychiatric: Orientation: alert and oriented x 3 Results & Data Results & Data ([facility]) Vital Signs (Past 12 Hours) Vital Signs Temp Pulse Pulse Resp BP Pulse Ox 03/12/20 11:20 36.9 C 79 17 125/82 93 03/12/20 07:54 36.6 C 78 17 122/75 94 03/12/20 07:00 72 03/12/20 03:30 36.5 C 80 18 115/78 94 Laboratory Results 03/12/20 05:05
[2020-03-12] MEDS: WARFARIN SOD 2.5 MG TAB PO SCH (15:50)
[2020-03-13] MEDS ORDERED: TORSEMIDE 20 MG TAB PO SCH (09:00)
--- NOTE | 2020-03-13 09:39 | Discharge Summary ---
Date of Service Date of Admission: 03/08/20 Date of Discharge: 03/12/20 Admission HPI Per Admitting Provider This is an 80-year-old female who has significant past medical history of persistent atrial fibrillation anticoagulated on warfarin, diastolic CHF, HTN, HLD, CKD stage III, pre DM, history of CVA without residual deficit, prediabetes, morbid obesity who presents to ED secondary to weight gain of 20 pounds in 1 month. Patient takes Lasix 80 mg daily for diastolic CHF. Over the past 1 to week she has been increasing it to 120 and 160 daily without noticing significant increase in urinary output. Over the past 1 month she has noticed progressive weight gain of 20 pounds, increased lower extremity edema, abdominal bloating, decreased appetite, early satiety, GAVIRIA. She chronically sleeps in a recliner and therefore denies any orthopnea or PND. She denies any recent il lness, fever, chills, sweats, dizziness, lightheadedness, syncope, chest pain, chest pain with exertion, shortness with at rest, hemoptysis, cough, abdominal pain, emesis, melena hematochezia or constipation. She is overall noticed decreased urgency or frequency with urination, but denies hematuria. She has been compliant with all of her medications. He has not followed with cardiology in approximately 1 year. Her baseline weight is approximately 250 and currently she is between 270-75. In ED patient remained hemodynamically stable and was saturating well on room air. CBC was generally unremarkable, BMP revealed BUN 21, creatinine 1.27, glucose 102, proBNP 2384, troponin WNL. Chest x-ray with mild CHF. In ED she received 100 mg IV Lasix, and she did take 80 mg orally this morning. During our evaluation she did start to have to urinate. Principal Diagnosis acute on chronic left ventricular diastolic heart failure Discharge Data Allergies Allergy/AdvReac Type Severity Reaction Status Date / Time latex Allergy Unknown Rash, Verified 10/28/19 23:09 itching, blisters morphine AdvReac Severe abdominal Verified 10/28/19 23:09 pain codeine AdvReac Mild NAUSEA,ABD Verified 10/28/19 23:09 PAIN oxycodone AdvReac Mild OPIATE Verified 10/28/19 23:09 AGONSITS = NAUSEA AND ABD PAIN Consultations 03/08/20 13:16 ED Decision to Admit Stat 03/08/20 14:21 Consult Cardiology Routine 03/08/20 18:44 Consult Case Management - Discharge Planning Routine Hospital Course (1) Acute heart failure with preserved ejection fraction (HFpEF): History of chronic left ventricular diastolic heart failure. Presented with acute exacerbation associated with 23 lb weight gain. Cardiology consulted. Echo showed mild concentric LVH, LVEF 55-60%, severely dilated LA, moderate- severe dilatation RA, normal RV systolic function, mild MR. Received IV furosemide with improvement of symptoms and exam. Wt 124 --> 121.5 kg. Discharged on torsemide 60 mg daily. Given CHF instructions. (2) Atrial fibrillation: Chronic atrial fibrillation, s/p failed ablation. Rate control with metoprolol. Anticoagulation with warfarin. INR 2.3 day of discharge. (3) HTN (hypertension): Continue metoprolol and losartan. (4) Cerebrovascular disease: Remote history of stroke without residual. Continue aspirin, warfarin, statin. (5) CKD (chronic kidney disease), stage III: Serum creatinine day of discharge = 1.21. Monitor closely with diuretic therapy. (6) Diabetes: History of prediabetes / borderline DM type 2. Last Hgb A1c in clinic was 6.5. Hgb here = 6.6. FBS day of discharge = 106. (7) Dyslipidemia: Continue atorvastatin. (8) DVT prophylaxis: On warfarin with therapeutic INR. Ambulating. (9) Discharge planning issues: Discharged to home. Family Medicine follow-up with Dr. Coates. Cardiology follow-up with Satnam Ayon PA-C Total Time Total Time Spent Total Time Spent (In Minutes): 40 Discharge Plan Discharge Items Patient Disposition: Home - Self-Care Reason For Visit: weight gain, trouble breathing Discharge Diagnosis: congestive heart failure Condition on Discharge: Good Activity: As commented below Activity Comment: Gradually increase activity as tolerated. Non-emergency contact: Primary Care Provider, Hospitalist and Health Physics Technician Call non-emergency contact if: you have any medication questions and your symptoms worsen Follow-up/Referrals: Satnam Ayon [Physician Pit Crane Operator] - (05/11/2020 9:30 AM Satnam Ayon PA-C Cardiology, [facility] ) Willie Coates MD [Primary Care Provider] - (03/15/2020 11:40 AM Barbara Light DO (covering for Dr. Coates) [facility]) Diet: Carb Consistent or DM2 and Heart Healthy Addtl Attending Provider Instructions: MEDICATION CHANGES: Stop furosemide (Lasix). Start torsemide (Demadex) 20 mg pills. Take 3 pills together (60 mg) each morning. SUMMARY OF TEST RESULTS: Chest x-ray showed fluid in lungs. Hemoglobin A1c was 6.6. Fasting blood sugars were 105 - 115. INR was 2.3 day of discharge. You were given warfarin dose day of discharge. Resume usual routine on Thursday03/13/20. OTHER INSTRUCTIONS: Seek medical attention if you have: * temperature above 101 * chest pain or trouble breathing * abdominal pain, nausea, vomiting * diarrhea, dark stools or bloody stools * any unanswered questions or concerns Call 911 if symptoms are severe. Please take good care of yourself. Call if you have any questions or problems. You can reach a [facility] hospitalist on duty at [facility] 24 hours a day by calling [phone]. My cell # is [phone]. Addtl [employer] Generator Provider Instructions: Call 911 and go to the Emergency Room if: * You have tightness or pain in your chest that does not go away with rest or Nitroglycerin * You are very short of breath even with rest Call your doctor if any of the following symptoms or problems start or get worse: * Shortness of breath or difficulty breathing * Wake up at night short of breath * Chest pain * Cough * Swelling of your hands, fee, or legs * More fatigued or tired with your normal activity * Palpitations - sudden fast heart beats WEIGHT * Weigh yourself every morning after using the bathroom. * Use the same scale. * Wear the same amount of clothing. * Write your weight down on your chart. * Call your doctor if you gain more than 2-3 pounds in 1-2 days. MEDICATIONS * Use this discharge instruction sheet for instructions. * Take your medications at the time your doctor ordered. * Do not skip a dose of your medicines. * If you miss a dose of medicine, take as soon as possible, but DO NOT DOUBLE A DOSE. * Read your medicine information when you get home. * Know all of the side effects of your medicine. * Call your doctor's office if you have any side effects. * Be sure all of your doctors know what medicine and herbs you take (including cold, flu, and herbal medicine). * Pain Medicine: If you do not get relief from your pain, please call your doctor for help. Take the following with you to your follow-up doctor appointments: * Weight Chart * Medication List * List of questions Do not drink excessive alcohol, beer or wine. Pending Studies at Discharge: Yes Stand-Alone Forms: My [facility], Smoking Cessation Medications and DC Order Prescriptions: New torsemide 20 mg tablet 60 mg PO DAILY Qty: 90 RF: 5 Continued atorvastatin 20 mg Tablet 20 mg PO HS RF: 0 metoprolol succinate 50 mg Tablet Extended Release 24 Hr 50 mg PO HS RF: 0 aspirin [Aspir-81] 81 mg Tablet,Delayed Release (Dr/Ec) 81 mg PO DAILY RF: 0 warfarin [Jantoven] 5 mg tablet See Rx Instructions .ROUTE .COMPLEX RF: 0 losartan 25 mg Tablet 25 mg PO HS RF: 0 ergocalciferol (vitamin D2) [Vitamin D2] 1,250 mcg (50,000 unit) Capsule 1,250 mcg PO WK RF: 0 diclofenac sodium [Voltaren] 1 % Gel 2 g TOPICAL BID RF: 0 potassium chloride 20 mEq Tablet Extended Release 20 meq PO BID RF: 0 famotidine [Pepcid] 20 mg tablet 20 mg PO DAILY Qty: 30 RF: 0 Discontinued furosemide [Lasix] 40 mg Tablet 80 mg PO DAILY RF: 0 Discharge Orders: Discharge Order (Routine); Ordered 03/12/20 Ordered By: Tony West/Other Patient Handouts: A1C Admission Data Admit Date/Time: 03/08/20 14:10 Attending Provider: Tony Ramos Admit Provider: Fina Lanier Primary Care Provider: Willie Coates Other Providers: Fina Lanier ; Obed Raymond Other Interventions: Discharge Summary Assessment (RN) Last Done: 03/12/20 15:37 DC Date/Time DO NOT enter until pt leaves facility: 03/12/20 16:15
== END 2020-03-12 16:15 | disposition home or self-care (01) | DRG 291 ==
LOC: ED 10:49 → SUATTDRO 14:10 → 2S 14:10

== ENCOUNTER 2021-08-05 18:04 | Observation (INO) ==
--- NOTE | 2021-08-05 18:23 | Emergency Department Note ---
Impression & Plan Jerking movements of extremities, Adverse effect of gabapentin ED Provider Note Provider: Pierce Graham MD DATE OF SERVICE: 08/05/2021 CHIEF COMPLAINT: Jerking movements, medication reaction HISTORY OF PRESENT ILLNESS: Patient is a 81-year-old female history of atrial fibrillation on warfarin, CKD, CVA, and diabetes presenting here today via ambulance from her house with the onset of jerking type movements this afternoon. Patient states a week or 2 ago she began to experience a rash d iagnosed as shingles on her right neck. This is been improving but was placed on gabapentin 3 days ago to help with pain complaints associated with this. Patient states that she is started on 300 daily then 2x300 daily yesterday and then 3x300 mg tablets today at noon. Starting at 4:00 PM she has had full body jerking at times but denies significant fatigue. Denies falls or trauma. Denies significant pain. States he is here whole body jerking movements that are involuntary. Denies a history of similar. Denies loss of consciousness. REVIEW OF SYSTEMS: A total of 10 review of systems was obtained and negative except as stated above in the HPI. PAST MEDICAL HISTORY: As noted above MEDICATIONS: Reviewed home medications SOCIAL HISTORY: Lives at home with son PHYSICAL EXAM: GENERAL: alert and oriented in no acute distress on stretcher Head: normocephalic and atraumatic EYES: No injection, discharge or icterus. PERRL NECK: Trachea midline. Supple. ENT: Mucous membranes pink and moist. LUNGS: Airway patent. No retractions. Breath sounds clear with good air entry bilaterally. HEART: Irregularly irregular rate and rhythm. No chest wall tenderness ABDOMEN: Soft and non-tender, without guarding or rebound. SKIN: Acyanotic, warm, dry, with only a few faint red patches on the right lateral neck without vesicular quality. EXTREMITIES: Without swelling, tenderness or deformity NEUROLOGICAL: No focal deficits moving all extremities. No aphasia. No facial droop or slurred speech. Normal strength and tone in the extremities. Sensation to gross touch normal. Patient has occasional full body jerking movements nonfocal in nature but not seizures. She has no LOC with this. Involuntary without clonus EK bpm atrial fibrillation. No acute ST segment elevation. QTc 385. Left axis noted. CONTINUOUS CARDIAC MONITORING: was ordered and showed a heart rate of 70s to 90s bpm in atrial fibrillation Patient's laboratory studies and imaging reviewed. Differential includes Infection, dehydration, metabolic abnormality, hypo/hyperglycemia, electrolyte disturbance, anemia, hypoxia, cardiac sources, intracerebral event, toxicologic, neurologic, as well as other pathologies. IMPRESSION/MEDICAL DECISION MAKING: Patient denies significant pain, headache, or new neurological deficit but has intermittent whole body involuntary jerking. Has recently been uptitrated gabapentin for pain related to shingles. Shingles appears to be mainly resolved at this point. No LOC or change in consciousness and do not believe this represents seizure. Given her history and anticoagulation basic labs and a CT of the head was obtained. Currently having not having focal jerking or deficits. Blood work here as well as urine sample are reassuring. CT of the head without acute intracranial pathology per radiology report. Fairly quick escalation in gabapentin dosage while this has been helpful with her shingles pain may be contributing. Not having the classic fatigue and dizziness I often associate with gabapentin. Discussed with [facility] neurology Dr. Wilson who b elieves her symptoms are likely related to gabapentin toxicity given her diminished renal clearance in the quick escalation of gabapentin dosage. Patient is on Coumadin lives at home with son and updated at bedside and patient states she is unable to walk at this time. Son reports concerns about the patient's ability go home and significant fall risk. We will trial a very small amount Ativan to see if this helps with symptoms given her age, comorbidities and anticoagulated status, and this random jerking feel that further observation here for her safety is prudent. Hospitalist contacted. DIAGNOSIS: Jerking, gabapentin toxicity DISPOSITION: Hospitalist will evaluate Patient was agreeable with this plan. 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 Family History Mother Alzheimer disease Social History Smoking Status: Never smoker Hx Alcohol Use: No Hx Substance Use: No Preferred Language: Kiswahili Communication Ability: Effective Prepress Operator Required: No Beliefs That Will Affect Care: None Current Living Situation: Family Current Living Situation Comment: Son lives with her Feels Safe at Home: Yes Assistive Devices: None Allergies Allergies Allergy/AdvReac Type Severity Reaction Status Date / Time latex Allergy Unknown Rash, Verified 08/05/21 20:09 itching, blisters morphine AdvReac Severe abdominal Verified 08/05/21 20:09 pain codeine AdvReac Mild NAUSEA,ABD Verified 08/05/21 20:09 PAIN oxycodone AdvReac Mild OPIATE Verified 08/05/21 20:09 AGONSITS = NAUSEA AND ABD PAIN Home Meds Home Medications Medication Instructions Recorded Confirmed atorvastatin 20 mg tablet 20 mg PO HS 10/28/19 08/05/21 ergocalciferol (vitamin D2) 1,250 1,250 mcg PO WK 10/28/19 08/05/21 mcg (50,000 unit) capsule (Vitamin D2) losartan 25 mg tablet 25 mg PO HS 10/28/19 08/05/21 metoprolol succinate 50 mg 50 mg PO HS 10/28/19 08/05/21 tablet,extended release 24 hr potassium chloride 20 mEq 20 meq PO BID 10/28/19 08/05/21 tablet,extended release warfarin 5 mg tablet (Jantoven) See Rx Instructions .ROUTE .COMPLEX 10/28/19 08/05/21 aspirin 81 mg tablet,delayed 81 mg PO QAM 08/05/21 08/05/21 release gabapentin 300 mg capsule 300 mg PO DAILY 08/05/21 08/05/21 Previous Rx's Medication Instructions Recorded torsemide 20 mg tablet 60 mg PO DAILY #90 tab 03/12/20 Results & Data (ED) Vital Signs Vital Signs - 24 hr 08/05/21 18:37 08/05/21 18:45 08/05/21 19:32 Temperature 36.6 C Temperature Source Oral Pulse Rate 89 78 Respiratory Rate 17 20 Respiratory Effort / Characteristics Non-Labored Blood Pressure 110/80 140/78 Blood Pressure Mean 90 98 Pulse Oximetry 98 97 97 Oxygen Delivery Method Room Air Room Air Room Air Oxygen Flow Rate Sepsis Recent Fever Within 48 Hours No Sepsis New/Unexplained Change in Mental Status N/A Sepsis Action Taken by Nursing No Action Required Oxygen Flow Rate - Titration Pulse Oximetry Post Tiitration 08/05/21 20:30 08/05/21 21:00 08/05/21 21:30 Temperature Temperature Source Pulse Rate 83 79 82 Respiratory Rate 16 20 24 Respiratory Effort / Characteristics Blood Pressure 132/91 125/83 129/91 Blood Pressure Mean 104 97 103 Pulse Oximetry 99 98 95 Oxygen Delivery Method Oxygen Flow Rate Sepsis Recent Fever Within 48 Hours Sepsis New/Unexplained Change in Mental Status Sepsis Action Taken by Nursing Oxygen Flow Rate - Titration Pulse Oximetry Post Tiitration 08/05/21 22:00 08/05/21 22:03 08/05/21 22:10 Temperature Temperature Source Pulse Rate 76 81 Respiratory Rate 18 16 Respiratory Effort / Characteristics Blood Pressure 122/81 Blood Pressure Mean 94 Pulse Oximetry 89 L 89 L 94 Oxygen Delivery Method Room Air Nasal Cannula Oxygen Flow Rate 2 Sepsis Recent Fever Within 48 Hours Sepsis New/Unexplained Change in Mental Status Sepsis Action Taken by Nursing Oxygen Flow Rate - Titration 2 Pulse Oximetry Post Tiitration 98 Laboratory Data Result diagrams: 08/05/21 18:59 08/05/21 19:51 Lab Results 08/05/21 08/05/21 08/05/21 Range/Units 18:59 18:59 18:59 WBC 6.30 (4.8-10.8) K/uL RBC 4.37 (4.2-5.4) M/uL Hgb 13.0 (12.0-16.0) g/dL Hct 39.1 (37-47) % MCV 89.5 (80-100) fL MCH 29.7 (25-34) pg MCHC 33.2 (32-36) g/dL Plt Count 299 (130-400) K/uL Immature Gran % (Auto) 0.2 % Neut % (Auto) 67.9 % Lymph % (Auto) 20.3 % [place] % (Auto) 7.9 % Eos % (Auto) 3.2 % Baso % (Auto) 0.5 % Neut # (Auto) 4.28 (1.4-6.5) K/uL Lymph # (Auto) 1.28 (1.2-3.4) K/uL [place] # (Auto) 0.50 (0.11-0.59) K/uL Eos # (Auto) 0.20 (0-0.5) K/uL Baso # (Auto) 0.03 (0-0.2) K/uL Immature Gran # (Auto) 0.01 (0.00-0.02) K/uL Absolute Nucleated RBC 0.19 H (0-0) K/uL Nucleated RBC % (auto) 2.9 % Platelet Estimate Normal (Normal) RBC Morphology Unremarkable PT 18.3 H (9.0-12.0) Seconds INR 1.9 H (0.9-1.1) Sodium 137 (136-145) mmol/L Potassium (3.5-5.1) mmol/L Chloride 102 (98-107) mmol/L Carbon Dioxide 29 (21-32) mmol/L Anion Gap 6.0 (3-11) BUN 27 H (7-18) mg/dl Creatinine 1.35 H (0.6-1.2) mg/dl Est Cr Clr Drug Dosing Not Reportable Est GFR ( Amer) 42.0 ml/min Est GFR (Non-Af Amer) 36.2 ml/min BUN/Creatinine Ratio 19.9 (10-20) Glucose 92 (70-99) mg/dl Calcium 9.3 (8.5-10.1) mg/dl Magnesium (1.8-2.4) mg/dl Total Bilirubin 0.5 (0.2-1) mg/dl AST (15-37) U/L ALT 30 (12-78) U/L Alkaline Phosphatase 113 (45-117) U/L Total Creatine Kinase (26-192) U/L Troponin I < 0.015 (0-0.045) ng/ml Total Protein 8.0 (6.4-8.2) gm/dl Albumin 3.4 (3.4-5.0) gm/dl Globulin 4.6 H (2.5-4.0) gm/dl Albumin/Globulin Ratio 0.7 L (0.9-2) TSH 1.770 (0.300-4.500) uIu/ml Specimen Hemolysis Urine Color Urine Appearance (Clear) Urine pH (4.5-7.5) Ur Specific [place] (1.000-1.030) Urine Protein (Negative) Urine Glucose (UA) (Negative) Urine Ketones (Negative) Urine Blood (Negative) Urine Nitrite (Negative) Urine Bilirubin (Negative) Urine Urobilinogen (Negative) Ur Leukocyte Esterase (Negative) SARS-CoV-2, RNA, NAAT (NEGATIVE) 08/05/21 08/05/21 08/05/21 Range/Units 19:34 19:51 21:20 WBC (4.8-10.8) K/uL RBC (4.2-5.4) M/uL Hgb (12.0-16.0) g/dL Hct (37-47) % MCV (80-100) fL MCH (25-34) pg MCHC (32-36) g/dL Plt Count (130-400) K/uL Immature Gran % (Auto) % Neut % (Auto) % Lymph % (Auto) % [place] % (Auto) % Eos % (Auto) % Baso % (Auto) % Neut # (Auto) (1.4-6.5) K/uL Lymph # (Auto) (1.2-3.4) K/uL [place] # (Auto) (0.11-0.59) K/uL Eos # (Auto) (0-0.5) K/uL Baso # (Auto) (0-0.2) K/uL Immature Gran # (Auto) (0.00-0.02) K/uL Absolute Nucleated RBC (0-0) K/uL Nucleated RBC % (auto) % Platelet Estimate (Normal) RBC Morphology PT (9.0-12.0) Seconds INR (0.9-1.1) Sodium (136-145) mmol/L Potassium 3.8 (3.5-5.1) mmol/L Chloride (98-107) mmol/L Carbon Dioxide (21-32) mmol/L Anion Gap (3-11) BUN (7-18) mg/dl Creatinine (0.6-1.2) mg/dl Est Cr Clr Drug Dosing Est GFR ( Amer) ml/min Est GFR (Non-Af Amer) ml/min BUN/Creatinine Ratio (10-20) Glucose (70-99) mg/dl Calcium (8.5-10.1) mg/dl Magnesium 2.3 (1.8-2.4) mg/dl Total Bilirubin (0.2-1) mg/dl AST 21 (15-37) U/L ALT (12-78) U/L Alkaline Phosphatase (45-117) U/L Total Creatine Kinase 96 (26-192) U/L Troponin I (0-0.045) ng/ml Total Protein (6.4-8.2) gm/dl Albumin (3.4-5.0) gm/dl Globulin (2.5-4.0) gm/dl Albumin/Globulin Ratio (0.9-2) TSH (0.300-4.500) uIu/ml Specimen Hemolysis Urine Color Yellow Urine Appearance Clear (Clear) Urine pH 5.0 (4.5-7.5) Ur Specific [place] 1.014 (1.000-1.030) Urine Protein Negative (Negative) Urine Glucose (UA) Negative (Negative) Urine Ketones Negative (Negative) Urine Blood Negative (Negative) Urine Nitrite Negative (Negative) Urine Bilirubin Negative (Negative) Urine Urobilinogen Negative (Negative) Ur Leukocyte Esterase Negative (Negative) SARS-CoV-2, RNA, NAAT NEGATIVE (NEGATIVE) Administered Medications Discontinued Medications Lorazepam (Ativan) 0.5 mg in 1 mls @ 1 mls/min IV NOW STA Stop: 08/05/21 21:20 Last Admin: 08/05/21 21:25 Dose: 1 mls/min Documented by: [id number] Imaging Data Radiologist's Impression: Head CT 08/05/21 18:18 CT head/brain wo con CLINICAL HISTORY: Patient started a new medication today and has developed uncontrollable shaking and jerking motions. COMPARISON STUDY: 04/01/2016 CT DOSE: 1842.80 mGy.cm TECHNIQUE: Standard CT of the Brain was performed without IV contrast. A dose lowering technique was utilized adhering to the principles of ALARA. FINDINGS: Extraaxial space: There is no evidence for subdural hematoma. There are no extra-axial fluid collections. Ventricles and cisterns: The ventricles are normal in size and configuration. There is no evidence for midline shift or mass effect. Parenchyma: There is no subarachnoid or intraparenchymal hemorrhage. There is no evidence for an acute infarct or cerebral edema. There is mild cerebral cortical atrophy present. There is homogeneous attenuation of the brain parenchyma. There are no gross mass lesions. Osseous structures: There is no evidence for an acute fracture. The visualized paranasal sinuses are clear. The mastoid air cells are clear bilaterally. Soft tissues: There is no evidence for focal soft tissue swelling. IMPRESSION: No acute intracerebral pathology. There is again evidence for mild cerebral cortical atrophy. ACT 112: Negative or not required by law. Electronically signed by: Alex Matias M.D. 08/05/2021 7:53 PM Chest X-Ray 08/05/21 21:57 XR chest 1V portable CLINICAL HISTORY: renal failure. Evaluate for vascular congestion/pulmonary edema COMPARISON STUDY: 03/08/2020 TECHNIQUE: 1 view of the chest FINDINGS: Single frontal view of the chest demonstrates the heart to again be enlarged. There is a decreased inspiratory effort with elevation of the hemidiaphragms and crowding of the bronchovascular markings at the lung bases and centrally. There is minimal left basilar atelectasis. The lungs are clear of alveolar opacities. There is no evidence for pleural effusion. There is no evidence for vascular congestion. There is no acute osseous pathology. IMPRESSION: Decreased inspiration with left basilar atelectasis. No evidence for vascular congestion. ACT 112: Negative or not required by law. Electronically signed by: Alex Matias M.D. 08/05/2021 10:20 PM Discharge Plan Visit Data Chief Complaint: Illness ED Provider: Pierce Graham Discharge Problem: Jerking movements of extremities, Adverse effect of gabapentin Patient Disposition: Being Evaluated by Hospitalist Forms Stand Alone Forms: My [facility] [employer] [facility] Prescriptions Prescriptions: No Action atorvastatin 20 mg Tablet 20 mg PO HS RF: 0 metoprolol succinate 50 mg Tablet Extended Release 24 Hr 50 mg PO HS RF: 0 warfarin [Jantoven] 5 mg tablet See Rx Instructions .ROUTE .COMPLEX RF: 0 losartan 25 mg Tablet 25 mg PO HS RF: 0 ergocalciferol (vitamin D2) [Vitamin D2] 1,250 mcg (50,000 unit) Capsule 1,250 mcg PO WK RF: 0 potassium chloride 20 mEq Tablet Extended Release 20 meq PO BID RF: 0 torsemide 20 mg tablet 60 mg PO DAILY Qty: 90 RF: 5 aspirin 81 mg tablet,delayed release (DR/EC) 81 mg PO QAM RF: 0 gabapentin 300 mg capsule 300 mg PO DAILY RF: 0 Referrals Referrals: PCP,NO [Physician] - Discharge Problem: Adverse effect of gabapentin Qualifiers: Encounter type: initial encounter Qualified Code(s): T42.6X5A - Adverse effect of other antiepileptic and sedative-hypnotic drugs, initial encounter
[2021-08-05 19:44] LABS: Appearance Urine Clear (Clear); Bilirubin Urine Negative (Negative); Blood Urine Negative (Negative); Color Urine Yellow; Glucose Urine UA Negative (Negative); Ketones Urine Negative (Negative); Leukocyte Esterase Urine Negative (Negative); Nitrite Urine Negative (Negative); Protein Urine Negative (Negative); Specific Gravity Urine 1.014 (1.000-1.030); Urobilinogen Urine Negative (Negative)
[2021-08-05 19:45] LABS: Basophils # (auto) 0.03 K/uL (0-0.2); Basophils % (auto) 0.5 %; Eosinophils % (auto) 3.2 %; Hematocrit (blood only) 39.1 % (37-47); Immature Granulocytes # (auto) 0.01 K/uL (0.00-0.02); Immature Granulocytes % (auto) 0.2 %; Lymphocytes # (auto) 1.28 K/uL (1.2-3.4); Lymphocytes % (auto) 20.3 %; Mean Corpuscular Hemoglobin 29.7 pg (25-34); Mean Corpuscular Hgb Conc 33.2 g/dL (32-36); Mean Corpuscular Volume 89.5 fL (80-100); Monocytes % (auto) 7.9 %; Neutrophils # (auto) 4.28 K/uL (1.4-6.5); Neutrophils % (auto) 67.9 %; Nucleated RBC # (auto) 0.19 K/uL (0-0); Nucleated RBC % (auto) 2.9 %; Platelet Count 299 K/uL (130-400); Platelet Estimate Normal (Normal); RBC Morphology Unremarkable; Red Blood Count 4.37 M/uL (4.2-5.4)
[2021-08-05 19:48] LABS: Alanine Aminotransferase 30 U/L (12-78); Albumin Level 3.4 gm/dl (3.4-5.0); BUN Creatinine Ratio 19.9 (10-20); Blood Urea Nitrogen 27 mg/dl (7-18); Calcium 9.3 mg/dl (8.5-10.1); Carbon Dioxide 29 mmol/L (21-32); Chloride 102 mmol/L (98-107); Est GFR (Non-African American) 36.2 ml/min; Glucose 92 mg/dl (70-99); Sodium 137 mmol/L (136-145)
--- NOTE | 2021-08-05 19:55 | CT Scan Report ---
CT head/brain wo con CLINICAL HISTORY: Patient started a new medication today and has developed uncontrollable shaking and jerking motions. COMPARISON STUDY: 04/01/2016 CT DOSE: 1842.80 mGy.cm TECHNIQUE: Standard CT of the Brain was performed without IV contrast. A dose lowering technique was utilized adhering to the principles of ALARA. FINDINGS: Extraaxial space: There is no evidence for subdural hematoma. There are no extra-axial fluid collecti ons. Ventricles and cisterns: The ventricles are normal in size and configuration. There is no evidence f or midline shift or mass effect. Parenchyma: There is no subarachnoid or intraparenchymal hemorrhage. There is no evidence for an acu te infarct or cerebral edema. There is mild cerebral cortical atrophy present. There is homogeneous a ttenuation of the brain parenchyma. There are no gross mass lesions. Osseous structures: There is no evidence for an acute fracture. The visualized paranasal sinuses are clear. The mastoid air cells are clear bilaterally. Soft tissues: There is no evidence for focal soft tissue swelling. IMPRESSION: No acute intracerebral pathology. There is again evidence for mild cerebral cortical atro phy. ACT 112: Negative or not required by law. Electronically signed by: Alex Matias M.D. 08/05/2021 7:53 PM
[2021-08-05 19:58] LABS: Albumin Globulin Ratio 0.7 (0.9-2); Alkaline Phosphatase 113 U/L (45-117); Bilirubin,Total 0.5 mg/dl (0.2-1); Globulin 4.6 gm/dl (2.5-4.0); Troponin I < 0.015 ng/ml (0-0.045)
[2021-08-05 20:17] LABS: Potassium 3.8 mmol/L (3.5-5.1)
[2021-08-05 20:25] LABS: INR 1.9 (0.9-1.1); Prothrombin Time 18.3 Seconds (9.0-12.0)
[2021-08-05 20:26] LABS: Magnesium 2.3 mg/dl (1.8-2.4)
[2021-08-05] MEDS ORDERED: LORazepam 0.5 MG/1 ML VIAL IV STA (21:19)
--- NOTE | 2021-08-05 22:21 | XRay Report ---
XR chest 1V portable CLINICAL HISTORY: renal failure. Evaluate for vascular congestion/pulmonary edema COMPARISON STUDY: 03/08/2020 TECHNIQUE: 1 view of the chest FINDINGS: Single frontal view of the chest demonstrates the heart to again be enlarged. There is a decreased in spiratory effort with elevation of the hemidiaphragms and crowding of the bronchovascular markings at the lung bases and centrally. There is minimal left basilar atelectasis. The lungs are clear of alve olar opacities. There is no evidence for pleural effusion. There is no evidence for vascular congesti on. There is no acute osseous pathology. IMPRESSION: Decreased inspiration with left basilar atelectasis. No evidence for vascular congestion. ACT 112: Negative or not required by law. Electronically signed by: Alex Matias M.D. 08/05/2021 10:20 PM
[2021-08-05] MEDS ORDERED: WARFARIN SOD 5 MG TAB PO ONE (23:14)
--- NOTE | 2021-08-05 23:14 | History & Physical Report ---
Date of Service August 05, 2021 Assessment & Plan (1) Jerking movements of extremities: Plan: Secondary to Gabapentin toxicity Recent Rx for neuropathic pain following recent shingles about chronic diastolic heart failure (EF 55 to 60%, TTE 2019), based on volume status as per patient A. fib status post ablation on Coumadin, patient NSR, INR slightly subtherapeutic hypertension, stable CRI, creatinine better than baseline history of CVA as per records DM2 diet-controlled, well-controlled as of recent hemoglobin A1c of 6.15 February 2021 GMF Stop Gabapentin and add to medication allergy/ADR list Lidoderm patch trial for neuropathic pain Neurology consult Re: Involuntary jerks (ER provider already in touch with Dr. Wilson.) ISS BG goal 110-140 DVT prophylaxis. Coumadin INR goal between 2 and 3 Full code Text document was generated using [email or web address] voice recognition software. It may contain grammatical or spelling errors. Kindly contact undersigned for clarification of any documentation item in question. History of Present Illness Chief Complaint: Involuntary jerking Primary Care Provider: Dr. Coates History obtained from patient and records. Medical history significant for chronic diastolic heart failure (EF 55 to 60%, TTE 2019), A. fib status post ablation on Coumadin, hypertension, history of CVA as per records, DM2 diet-controlled, CRI (baseline creatinine 1.4). Last confinement February 2020 for decompensated heart failure Last week patient noted to have painful blisters and sores on the right side of her face and neck. PCP video appointment last week. Impression was [place] Blunt syndrome/herpes zoster./Suspected shingles infection relatively resolving. Topical antibiotic recommended for ulceration and external ear. Improved lesions as per patient. Gabapentin later prescribed by outpatient provider for pain following patient's request. Escalating doses recommended over the next few days. Patient later on noted involuntary shaking and jerking following intake of escalating doses of Gabapentin. "Possible seizures" without headache or altered consciousness as per patient. No syncope. Some dizziness. Patient directed by PCP to ER for evaluation. Involuntary jerking resolved after Ativan administration. MEDICAL HISTORY: As above. SURGERIES: She has had hysterectomy, vaginal repair, hemorrhoidectomy, uterine suspension, dental surgery, paraesophageal hernia repair. FAMILY HISTORY:Dementia, cirrhosis PERSONAL AND SOCIAL HISTORY: Nonsmoker, no ETOH intake, former [employer] employee employee. Allergies Allergy/AdvReac Type Severity Reaction Status Date / Time latex Allergy Unknown Rash, Verified 08/05/21 20:09 itching, blisters morphine AdvReac Severe abdominal Verified 08/05/21 20:09 pain gabapentin AdvReac Intermediate inv jerking Verified 08/05/21 23:22 codeine AdvReac Mild NAUSEA,ABD Verified 08/05/21 20:09 PAIN oxycodone AdvReac Mild OPIATE Verified 08/05/21 20:09 AGONSITS = NAUSEA AND ABD PAIN Home Medications Medication Instructions Recorded Confirmed Type atorvastatin 20 mg tablet 20 mg PO HS 10/28/19 08/05/21 History ergocalciferol (vitamin D2) 1,250 1,250 mcg PO WK 10/28/19 08/05/21 History mcg (50,000 unit) capsule (Vitamin D2) losartan 25 mg tablet 25 mg PO HS 10/28/19 08/05/21 History metoprolol succinate 50 mg 50 mg PO HS 10/28/19 08/05/21 History tablet,extended release 24 hr potassium chloride 20 mEq 20 meq PO BID 10/28/19 08/05/21 History tablet,extended release warfarin 5 mg tablet (Jantoven) See Rx Instructions .ROUTE .COMPLEX 10/28/19 08/05/21 History torsemide 20 mg tablet 60 mg PO DAILY #90 tab 03/12/20 08/05/21 Rx aspirin 81 mg tablet,delayed 81 mg PO QAM 08/05/21 08/05/21 History release gabapentin 300 mg capsule 300 mg PO DAILY 08/05/21 08/05/21 History Past Med/Surg History Medical History (Updated 08/05/21 @ 21:29 by Pierce Graham M.D.) Atrial fibrillation Cerebrovascular disease CHF (congestive heart failure) CKD (chronic kidney disease), stage III Fracture of proximal end of right humerus HTN (hypertension) Shoulder pain, acute Surgical History H/O hernia repair H/O: hysterectomy History of colonoscopy History of colposcopy History of right shoulder replacement Status post repair of paraesophageal diaphragmatic hernia Family History Mother Alzheimer disease Social History Smoking Status: Never smoker Second Hand Exposure: No; Do You Dip or Chew Tobacco: No; Tobacco Cessation Education Requested by Patient: No Hx Alcohol Use: No Hx Substance Use: No Preferred Language: Sinhala Communication Ability: Effective Dressing Room Porter Required: No Beliefs That Will Affect Care: None Current Living Situation: Family Current Living Situation Comment: Has sons and a tenant to help (Tenant lives in house). Other Information That Helps Us Care for You: No Feels Safe at Home: Yes Safety Concerns: Feels Safe At This Time Assistive Devices: Cane, Glasses and Walker Assistive Devices Comment: Glasses to read. Review of Systems Review of Systems: As per HPI, all 10 systems reviewed, all other ROS negative Physical Exam Physical Exam: GENERAL: Comfortable, lethargic, morbidly obese, pleasant, no respiratory distress SKIN: Normal color, warm HEENT: Gate palpebral conjunctivae, no ptosis, dry buccal mucosa NECK : Faint brown lesions right neck, short neck, minimal tenderness CHEST : CTA, no tenderness HEART : Irregular, no obvious murmurs ABDOMEN: Some distention, nontender EXTREMITIES : Bilateral LE swelling, no LE tenderness, no other conspicuous d eformities noted NEUROLOGIC : Lethargic, no facial asymmetry, no other gross focality Results & Data Results & Data ([facility]) Vital Signs (Past 12 Hours) Vital Signs Temp Pulse Resp BP Pulse Ox 08/05/21 22:10 81 16 94 08/05/21 22:03 89 L 08/05/21 22:00 76 18 122/81 89 L 08/05/21 21:30 82 24 129/91 95 08/05/21 21:00 79 20 125/83 98 08/05/21 20:30 83 16 132/91 99 08/05/21 19:32 78 20 140/78 97 08/05/21 18:45 97 08/05/21 18:37 36.6 C 89 17 110/80 98 Laboratory Results Laboratory Results WBC 6.30 K/uL (4.8-10.8) 08/05/21 18:59 RBC 4.37 M/uL (4.2-5.4) 08/05/21 18:59 Hgb 13.0 g/dL (12.0-16.0) 08/05/21 18:59 Hct 39.1 % (37-47) 08/05/21 18:59 MCV 89.5 fL (80-100) 08/05/21 18:59 MCH 29.7 pg (25-34) 08/05/21 18:59 MCHC 33.2 g/dL (32-36) 08/05/21 18:59 Plt Count 299 K/uL (130-400) 08/05/21 18:59 Immature Gran % (Auto) 0.2 % 08/05/21 18:59 Neut % (Auto) 67.9 % 08/05/21 18:59 Lymph % (Auto) 20.3 % 08/05/21 18:59 [place] % (Auto) 7.9 % 08/05/21 18:59 Eos % (Auto) 3.2 % 08/05/21 18:59 Baso % (Auto) 0.5 % 08/05/21 18:59 Neut # (Auto) 4.28 K/uL (1.4-6.5) 08/05/21 18:59 Lymph # (Auto) 1.28 K/uL (1.2-3.4) 08/05/21 18:59 [place] # (Auto) 0.50 K/uL (0.11-0.59) 08/05/21 18:59 Eos # (Auto) 0.20 K/uL (0-0.5) 08/05/21 18:59 Baso # (Auto) 0.03 K/uL (0-0.2) 08/05/21 18:59 Immature Gran # (Auto) 0.01 K/uL (0.00-0.02) 08/05/21 18:59 Absolute Nucleated RBC 0.19 K/uL (0-0) H 08/05/21 18:59 Nucleated RBC % (auto) 2.9 % 08/05/21 18:59 Platelet Estimate Normal (Normal) 08/05/21 18:59 RBC Morphology Unremarkable 08/05/21 18:59 PT 18.3 Seconds (9.0-12.0) H 08/05/21 18:59 INR 1.9 (0.9-1.1) H 08/05/21 18:59 Sodium 137 mmol/L (136-145) 08/05/21 18:59 Potassium 3.8 mmol/L (3.5-5.1) 08/05/21 19:51 Chloride 102 mmol/L (98-107) 08/05/21 18:59 Carbon Dioxide 29 mmol/L (21-32) 08/05/21 18:59 Anion Gap 6.0 (3-11) 08/05/21 18:59 BUN 27 mg/dl (7-18) H 08/05/21 18:59 Creatinine 1.35 mg/dl (0.6-1.2) H 08/05/21 18:59 Est Cr Clr Drug Dosing Not Reportable 08/05/21 18:59 Est GFR ( Amer) 42.0 ml/min 08/05/21 18:59 Est GFR (Non-Af Amer) 36.2 ml/min 08/05/21 18:59 BUN/Creatinine Ratio 19.9 (10-20) 08/05/21 18:59 Glucose 92 mg/dl (70-99) 08/05/21 18:59 Calcium 9.3 mg/dl (8.5-10.1) 08/05/21 18:59 Magnesium 2.3 mg/dl (1.8-2.4) 08/05/21 19:51 Total Bilirubin 0.5 mg/dl (0.2-1) 08/05/21 18:59 AST 21 U/L (15-37) 08/05/21 19:51 ALT 30 U/L (12-78) 08/05/21 18:59 Alkaline Phosphatase 113 U/L (45-117) 08/05/21 18:59 Total Creatine Kinase 96 U/L (26-192) 08/05/21 19:51 Troponin I < 0.015 ng/ml (0-0.045) 08/05/21 18:59 Total Protein 8.0 gm/dl (6.4-8.2) 08/05/21 18:59 Albumin 3.4 gm/dl (3.4-5.0) 08/05/21 18:59 Globulin 4.6 gm/dl (2.5-4.0) H 08/05/21 18:59 Albumin/Globulin Ratio 0.7 (0.9-2) L 08/05/21 18:59 TSH 1.770 uIu/ml (0.300-4.500) 08/05/21 18:59 Specimen Hemolysis 08/05/21 19:51 Urine Color Yellow 08/05/21 19:34 Urine Appearance Clear (Clear) 08/05/21 19:34 Urine pH 5.0 (4.5-7.5) 08/05/21 19:34 Ur Specific [place] 1.014 (1.000-1.030) 08/05/21 19:34 Urine Protein Negative (Negative) 08/05/21 19:34 Urine Glucose (UA) Negative (Negative) 08/05/21 19:34 Urine Ketones Negative (Negative) 08/05/21 19:34 Urine Blood Negative (Negative) 08/05/21 19:34 Urine Nitrite Negative (Negative) 08/05/21 19:34 Urine Bilirubin Negative (Negative) 08/05/21 19:34 Urine Urobilinogen Negative (Negative) 08/05/21 19:34 Ur Leukocyte Esterase Negative (Negative) 08/05/21 19:34 SARS-CoV-2, RNA, NAAT NEGATIVE (NEGATIVE) 08/05/21 21:[address] 08/05/21 18:18 CT head/brain wo con CLINICAL HISTORY: Patient started a new medication today and has developed uncontrollable shaking and jerking motions. COMPARISON STUDY: 04/01/2016 CT DOSE: 1842.80 mGy.cm TECHNIQUE: Standard CT of the Brain was performed without IV contrast. A dose lowering technique was utilized adhering to the principles of ALARA. FINDINGS: Extraaxial space: There is no evidence for subdural hematoma. There are no extra-axial fluid collections. Ventricles and cisterns: The ventricles are normal in size and configuration. There is no evidence for midline shift or mass effect. Parenchyma: There is no subarachnoid or intraparenchymal hemorrhage. There is no evidence for an acute infarct or cerebral edema. There is mild cerebral cortical atrophy present. There is homogeneous attenuation of the brain parenchyma. There are no gross mass lesions. Osseous structures: There is no evidence for an acute fracture. The visualized paranasal sinuses are clear. The mastoid air cells are clear bilaterally. Soft tissues: There is no evidence for focal soft tissue swelling. IMPRESSION: No acute intracerebral pathology. There is again evidence for mild cerebral cortical atrophy. ACT 112: Negative or not required by law. Electronically signed by: Alex Matias M.D. 08/05/2021 7:53 PM Chest X-Ray 08/05/21 21:57 XR chest 1V portable CLINICAL HISTORY: renal failure. Evaluate for vascular congestion/pulmonary edema COMPARISON STUDY: 03/08/2020 TECHNIQUE: 1 view of the chest FINDINGS: Single frontal view of the chest demonstrates the heart to again be enlarged. There is a decreased inspiratory effort with elevation of the hemidiaphragms and crowding of the bronchovascular markings at the lung bases and centrally. There is minimal left basilar atelectasis. The lungs are clear of alveolar opacities. There is no evidence for pleural effusion. There is no evidence for vascular congestion. There is no acute osseous pathology. IMPRESSION: Decreased inspiration with left basilar atelectasis. No evidence for vascular congestion. ACT 112: Negative or not required by law. Electronically signed by: Alex Matias M.D. 08/05/2021 10:20 PM Diagnostic Findings EKG as per my interpretation rate 80, LAD, LAFB, diffuse T wave flattening, low voltage
[2021-08-05] MEDS ORDERED: ALBUMIN 25% 12.5 GM/50 ML VIAL IV ONE (23:23)
[2021-08-05] MEDS: LIDOCAINE 5% 1 PATCH TD SCH (23:37)
[2021-08-06] MEDS ORDERED: PROMETHAZINE HCL 12.5 MG in SODIUM CHLORIDE 0.9% 50 ML IV PRN (00:18)
[2021-08-06] MEDS ORDERED: traMADol HCL 50 MG TABLET PO PRN (00:18)
[2021-08-06] MEDS ORDERED: ACETAMINOPHEN 325 MG TAB PO PRN (00:18)
[2021-08-06] MEDS ORDERED: LORazepam 0.25 MG/0.5 ML VIAL IV PRN (00:18)
[2021-08-06] MEDS: METOPROLOL SUCC 50MG EXT REL TAB PO SCH ×2 (01:23→20:31)
[2021-08-06] MEDS ORDERED: GLUCAGON FOR INJ 1 MG VIAL SQ PRN (03:19)
[2021-08-06] MEDS ORDERED: GLUCOSE 10 TABS/TUBE PO PRN (03:19)
[2021-08-06] MEDS ORDERED: DEXTROSE 50% 50 ML SYRINGE IV PRN (03:19)
[2021-08-06] MEDS ORDERED: GLUCOSE 40% GEL 15 GM TUBE PO PRN (03:19)
[2021-08-06] MEDS ORDERED: CARBOHYDRATES FOR HYPOGLYCEMIA PO PRN (03:19)
[2021-08-06 08:26] LABS: Basophils # (auto) 0.03 K/uL (0-0.2); Basophils % (auto) 0.6 %; Eosinophils # (auto) 0.18 K/uL (0-0.5); Eosinophils % (auto) 3.4 %; Hematocrit (blood only) 35.6 % (37-47); Hemoglobin 11.5 g/dL (12.0-16.0); Immature Granulocytes # (auto) 0.01 K/uL (0.00-0.02); Immature Granulocytes % (auto) 0.2 %; Lymphocytes # (auto) 1.36 K/uL (1.2-3.4); Lymphocytes % (auto) 26.1 %; Mean Corpuscular Hgb Conc 32.3 g/dL (32-36); Mean Corpuscular Volume 89.7 fL (80-100); Mean Platelet Volume 9.9 fL (7.4-10.4); Monocytes # (auto) 0.35 K/uL (0.11-0.59); Monocytes % (auto) 6.7 %; Neutrophils # (auto) 3.29 K/uL (1.4-6.5); Platelet Count 213 K/uL (130-400); RDW Coefficient of Variation 14.6 % (11.5-14.5); RDW Standard Deviation 48.1 fL (36.4-46.3); Red Blood Count 3.97 M/uL (4.2-5.4); White Blood Count 5.22 K/uL (4.8-10.8)
[2021-08-06 08:32] LABS: INR 2.1 (0.9-1.1); Prothrombin Time 19.7 Seconds (9.0-12.0)
[2021-08-06] MEDS: ASPIRIN 81 MG ECTAB PO SCH (08:48)
[2021-08-06] MEDS: TORSEMIDE 20 MG TAB PO SCH (08:48)
[2021-08-06] MEDS: POTASSIUM CHLORIDE CRTAB 20 MEQ TABCR PO SCH ×2 (08:49→20:31)
--- NOTE | 2021-08-06 08:51 | Neurology Consultation ---
Date of Consultation August 06, 2021 Assessment & Plan (1) Jerking movements of extremities: 1. gabapentin related jerking resolved after gabapentin was stopped 2. no current complaints of pain 3. if restarted would start 100 mg hs x 5 days then 100 mg bid x 5 days then 100 mg tid. could increase by 100 mg every 5 days if needed but with renal dosing of no more than 700 mg BID 4. PT/OT for further discharge needs 5. primary team for any medical management 6. will sign off for now no further neurologic follow up need. will see her on an as needed basis. (2) Adverse effect of gabapentin: (3) Shingles: Supervising Physician Co-Signing Physician Notes I have seen and discussed above patient with Dr Tony Wilson, neurology I have interviewed briefly examined Mrs. Ferrer today with Harleen Gonzalez PA-C and did discuss her case last night with Dr. Graham of the emergency room She developed what appears to be right-sided C1 dermatomal shingles within the past 7 to 10 days but did not reported time to be in the window for antiviral treatment, had some pain and was started on gabapentin but I suspect she misunderstood the directions and took 3 of the 300 mg tablets on the third day as a single dose and promptly developed what sounds like myoclonus tremor mild confusion but admits in retrospect that the pain was magically relieved and remains from the now despite being off the medication as she was brought to the emergency room and admitted and it has not recurred. She apparently had 1 or 2 brief myoclonic episodes this morning and has had none this afternoon, her EEG is absolutely normal, she does have some low-grade renal disease with a creatinine clearance of 43 Exam reveals her to be awake alert and oriented grossly intact cranial nerves normal mental status normal motor system movements and no abnormal involuntary activity At this point I think this was a gabapentin tox facility of acute type and suspect she actually could take this medication at a lower dose i.e. perhaps 100 mg 3 times a day if needed in the future to control her pain and based on her renal clearance calculation she could take up to 1400 mg total per day given that 700 mg every 12 hours She apparently had a remarkable pain response to tramadol in remote past and wonders if she could take this medication but I reminded her that it is a narcotic and we really would prefer not to go down the narcotic road particularly since she may be faced with some chronic low-grade need for analgesia in which case the gabapentin would certainly be much safer if tolerated We will sign off the case at this point I think she can be discharged and we certainly can see her on an as-needed basis of her primary care physician would desire us to do so Tony Wilson MD History of Present Illness Reason for Consultation: involuntary movements Requesting Physician: Claribel Bhakta MD Attending Physician: Claribel Bhakta MD History of Present Illness Racquel is a 81 year old female PMH- a fib on warfin, CKD, CVA, DM2 who presented to [facility] ED 08/05/2021 via ambulance from her house with the onset of jerking type movements this afternoon.About a week or 2 ago she began to experience a rash diagnosed as shingles on her right neck.She was placed on gabapentin 3 days ago to help with pain complaints associated with the shingles. She was started on 300 daily then 2x300 daily yesterday and then 3x300 mg tablets at noon and they by 1600 she had full body jerking at times but denies significant fatigue.The whole body jerking movements are involuntary. She is back to her baseline today after stopping the gabapentin. It sounds like she may have taken the gabapentin incorrectly and was over the dose for her renal function. denies CP, SOB, abdominal pain, weakness, N, V, vision changes pain behind right ear. Allergies Allergy/AdvReac Type Severity Reaction Status Date / Time latex Allergy Unknown Rash, Verified 08/05/21 20:09 itching, blisters morphine AdvReac Severe abdominal Verified 08/05/21 20:09 pain gabapentin AdvReac Intermediate inv jerking Verified 08/05/21 23:22 codeine AdvReac Mild NAUSEA,ABD Verified 08/05/21 20:09 PAIN oxycodone AdvReac Mild OPIATE Verified 08/05/21 20:09 AGONSITS = NAUSEA AND ABD PAIN Home Medications Medication Instructions Recorded Confirmed Type atorvastatin 20 mg tablet 20 mg PO HS 10/28/19 08/05/21 History ergocalciferol (vitamin D2) 1,250 1,250 mcg PO WK 10/28/19 08/05/21 History mcg (50,000 unit) capsule (Vitamin D2) losartan 25 mg tablet 25 mg PO HS 10/28/19 08/05/21 History metoprolol succinate 50 mg 50 mg PO HS 10/28/19 08/05/21 History tablet,extended release 24 hr potassium chloride 20 mEq 20 meq PO BID 10/28/19 08/05/21 History tablet,extended release warfarin 5 mg tablet (Jantoven) See Rx Instructions .ROUTE .COMPLEX 10/28/19 08/05/21 History torsemide 20 mg tablet 60 mg PO DAILY #90 tab 03/12/20 08/05/21 Rx aspirin 81 mg tablet,delayed 81 mg PO QAM 08/05/21 08/05/21 History release gabapentin 300 mg capsule 300 mg PO DAILY 08/05/21 08/05/21 History Patient History Medical History (Updated 08/06/21 @ 16:15 by Harleen Gonzalez PA-C) Atrial fibrillation Cerebrovascular disease CHF (congestive heart failure) CKD (chronic kidney disease), stage III Fracture of proximal end of right humerus HTN (hypertension) Shoulder pain, acute Surgical History H/O hernia repair H/O: hysterectomy History of colonoscopy History of colposcopy History of right shoulder replacement Status post repair of paraesophageal diaphragmatic hernia Family History Mother Alzheimer disease Social History Smoking Status: Never smoker Second Hand Exposure: No; Do You Dip or Chew Tobacco: No; Tobacco Cessation Education Requested by Patient: No Hx Alcohol Use: No Hx Substance Use: No Preferred Language: Yakut Communication Ability: Effective 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 Other Information That Helps Us Care for You: No Feels Safe at Home: Yes Safety Concerns: Feels Safe At This Time Assistive Devices: None Assistive Devices Comment: Glasses to read. Review of Systems Review of Systems: All systems reviewed & are unremarkable except as noted in HPI & below Physical Exam Physical Exam: Physical Exam: Constitutional: appearance over nourished, healthy Ears, Nose, Mouth and Throat: mucous membranes moist, no injection and skin normal, eyes normal Cardiovascular: normal S-1 and S-2 and regular rate and rhythm Respiratory: clear to auscultation (CTA) and no rales, rhonchi or wheeze Musculoskeletal: no peripheral edema Skin: no stigmata of neurocutaneous disease noted and normal and intact, multiple vesicles behind right ear into hair line Eyes: extraocular muscles intact (EOMI) NEUROLOGIC EXAMINATION: Mental status: Alert and interactive Oriented to full date and location Oriented to person Speech fluent with no evidence of aphasia Cranial Nerves smile eye brow raise symmetric Sensory: intact to light cool touch Coordination: move all ext purposefully and spontaneous Gait/Stance: Posture lying in bed Motor: Negative for pronator drift of out stretched arms with eyes closed. Strength: hand radio announcer biceps triceps 5/5, hip flex 5/5 Results & Data ([facility]) Vital Signs (Past 12 Hours) Vital Signs Temp Pulse Pulse Resp BP BP BP 08/06/21 05:56 36.3 C L 84 16 120/68 08/06/21 00:53 36.2 C L 73 14 115/78 08/06/21 00:05 36.2 C L 74 16 113/75 08/05/21 23:30 79 18 123/74 08/05/21 23:00 82 16 115/77 08/05/21 22:10 81 16 08/05/21 22:03 08/05/21 22:00 76 18 122/81 08/05/21 21:30 82 24 129/91 08/05/21 21:00 79 20 125/83 Pulse Ox 08/06/21 05:56 95 08/06/21 00:53 96 08/06/21 00:05 93 08/05/21 23:30 98 08/05/21 23:00 95 08/05/21 22:10 94 08/05/21 22:03 89 L 08/05/21 22:00 89 L 08/05/21 21:30 95 08/05/21 21:00 98 Laboratory Results Abnormal lab results 08/05/21 08/05/21 08/05/21 Range/Units 18:59 18:59 18:59 RBC (4.2-5.4) M/uL Hgb (12.0-16.0) g/dL Hct (37-47) % RDW Std Deviation (36.4-46.3) fL RDW Coeff of Luis Miguel (11.5-14.5) % Absolute Nucleated RBC 0.19 H (0-0) K/uL PT 18.3 H (9.0-12.0) Seconds INR 1.9 H (0.9-1.1) BUN 27 H (7-18) mg/dl Creatinine 1.35 H (0.6-1.2) mg/dl Globulin 4.6 H (2.5-4.0) gm/dl Albumin/Globulin Ratio 0.7 L (0.9-2) 08/06/21 08/06/21 Range/Units 08:08 08:08 RBC 3.97 L (4.2-5.4) M/uL Hgb 11.5 L (12.0-16.0) g/dL Hct 35.6 L (37-47) % RDW Std Deviation 48.1 H (36.4-46.3) fL RDW Coeff of [place] 14.6 H (11.5-14.5) % Absolute Nucleated RBC (0-0) K/uL PT 19.7 H (9.0-12.0) Seconds INR 2.1 H (0.9-1.1) BUN (7-18) mg/dl Creatinine (0.6-1.2) mg/dl Globulin (2.5-4.0) gm/dl Albumin/Globulin Ratio (0.9-2) Diagnostic Findings CT head-No acute intracerebral pathology. There is again evidence for mild cerebral cortical atrophy. CXR-Decreased inspiration with left basilar atelectasis. No evidence for vascula r congestion. (1) Adverse effect of gabapentin Encounter type: initial encounter Qualified Code(s): T42.6X5A - Adverse effect of other antiepileptic and sedative-hypnotic drugs, initial encounter
[2021-08-06 09:33] LABS: BUN Creatinine Ratio 21.1 (10-20); Calcium 8.8 mg/dl (8.5-10.1); Creatinine Clr Calc Pharmacy 45.7 ml/min; Est GFR (African American) 49.9 ml/min; Est GFR (Non-African American) 43.1 ml/min; Potassium 3.7 mmol/L (3.5-5.1)
[2021-08-06] MEDS: POLYETHYLENE (MIRALAX) 17 GM PACK PO SCH (09:44)
[2021-08-06] MEDS: INSULIN ASPART 100 UNITS/ML 3 ML PEN SC SCH ×4 (09:45→21:40)
[2021-08-06] MEDS ORDERED: WARFARIN SOD 2.5 MG TAB PO SCH (16:00)
--- NOTE | 2021-08-06 16:14 | Electroencephalogram ---
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 Home Medication List Medication Instructions Recorded Confirmed Type atorvastatin 20 mg tablet 20 mg PO HS 10/28/19 08/05/21 History ergocalciferol (vitamin D2) 1,250 1,250 mcg PO WK 10/28/19 08/05/21 History mcg (50,000 unit) capsule (Vitamin D2) losartan 25 mg tablet 25 mg PO HS 10/28/19 08/05/21 History metoprolol succinate 50 mg 50 mg PO HS 10/28/19 08/05/21 History tablet,extended release 24 hr potassium chloride 20 mEq 20 meq PO BID 10/28/19 08/05/21 History tablet,extended release warfarin 5 mg tablet (Jantoven) See Rx Instructions .ROUTE .COMPLEX 10/28/19 08/05/21 History torsemide 20 mg tablet 60 mg PO DAILY #90 tab 03/12/20 08/05/21 Rx aspirin 81 mg tablet,delayed 81 mg PO QAM 08/05/21 08/05/21 History release gabapentin 300 mg capsule 300 mg PO DAILY 08/05/21 08/05/21 History Inpatient Medication List Aspirin (Aspirin 81 Mg Ectab) [facility] [place] Stop: 09/05/21 08:59 Last Admin: 08/06/21 08:48 Dose: 81 mg Documented by: [id number] Insulin Aspart (Insulin Aspart 100 Units/Ml 3 Ml Pen) 0 units SC ACHS [facility] Stop: 09/05/21 07:29 Last Admin: 08/06/21 13:39 Dose: 4 units Documented by: [id number] Cosigned by: [id number] Admin: 08/06/21 09:45 Dose: 2 units Documented by: [id number] Cosigned by: [id number] Lidocaine (Lidocaine 5% 1 Patch) 1 patch TD QAM [facility] Stop: 09/04/21 23:29 Last Admin: 08/05/21 23:37 Dose: 1 patch Documented by: [id number] Metoprolol Succinate (Metoprolol Succ 50mg Ext Rel Tab) 50 mg PO [facility] Stop: 09/05/21 00:17 Last Admin: 08/06/21 01:23 Dose: 50 mg Documented by: [id number] Miscellaneous (Remove Lidoderm Patch) 1 ea N/A DAILY@2100 [facility] Stop: 09/05/21 11:29 Last Admin: 08/06/21 13:38 Dose: 1 ea Documented by: [id number] Polyethylene Glycol (Polyethylene (Miralax) 17 Gm Pack) 17 gm PO DAILY [facility] Stop: 08/08/21 09:01 Last Admin: 08/06/21 09:44 Dose: 17 gm Documented by: [id number] Potassium Chloride (Potassium Chloride Crtab 20 Meq Tabcr) 20 meq PO BID [facility] Stop: 09/05/21 08:59 Last Admin: 08/06/21 08:49 Dose: 20 meq Documented by: [id number] Torsemide (Torsemide 20 Mg Tab) 60 mg PO DAILY [facility] Stop: 09/05/21 08:59 Last Admin: 08/06/21 08:48 Dose: 60 mg Documented by: [id number] Discontinued Medications Lorazepam (Ativan) 0.5 mg in 1 mls @ 1 mls/min IV NOW STA Stop: 08/05/21 21:20 Last Admin: 08/05/21 21:25 Dose: 1 mls/min Documented by: [id number] Albumin Human (Albumin 25%) 12.5 gm in 50 mls @ 50 mls/hr IV ONE ONE Stop: 08/06/21 00:22 Last Infusion: 08/06/21 00:48 Dose: 0 mls/hr Documented by: [id number] Admin: 08/05/21 23:38 Dose: 50 mls/hr Documented by: [id number] Warfarin Sodium (Warfarin Sod 5 Mg Tab) 5 mg PO NOW ONE Stop: 08/05/21 23:15 Last Admin: 08/05/21 23:55 Dose: 5 mg Documented by: [id number] Description This is a 21 electrode EEG with a single channel dedicated to limited EKG. The electrodes were placed in accordance with the International 10-20 system. This EEG was done as bedside tracing is of good technical quality with fewer no muscle movement artifact on the video analysis of the patient movement and behavior indicated no evidence for myoclonus or tremor. Drowsiness/sleep not recorded. Photic stimulation was performed. Under these conditions there is evidence for normal-appearing background rhythm in the alpha range of up to 9 Hz and maximum frequency and 30 V a maximum amplitude. This is maximum posterior head regions and is bilaterally symmetrical. Polymorphic mid to upper frequency modest voltage theta activity is seen symmetrically over the central regions and beta activity seen bifrontally Examination provokes a minimal driving response with no photo myogenic or photoparoxysmal components are noted No potentially epileptiform discharges are seen Interpretation This is a normal EEG during wakefulness Clinical Correlation This EEG is normal fails to reveal evidence for a focal or generalized encephalopathy and specifically fails to reveal evidence for any potentially epileptogenic activity, or other paroxysmal abnormalities specifically cortically originally any myoclonus Tony Wilson MD
[2021-08-06] MEDS ORDERED: Nursing to Pharmacy Communication SCH (16:15)
--- NOTE | 2021-08-06 17:19 | Hospitalist Progress Note ---
Date of Service August 06, 2021 Assessment & Plan (1) Jerking movements of extremities: (2) Adverse effect of gabapentin: Plan: #. Jerking movements of extremities #. Adverse effect to gabapentin Patient was on gabapentin recently for neuropathic pain following recent shingles attack. Patient presented with jerking movements of her extremities 08/05. Patient reporting improvement in her jerking movements being less frequent currently. Neurology evaluated the patient while in hospital, no further neurological follow-up unless primary care desires down the road, recommended resuming gabapentin starting from low-dose. Upon discussion with patient for possibility of restarting low-dose gabapentin, patient denied. Patient reports the pain is not that great now and does not need any medication. #. DM diet controlled Patient was not on any DM meds as outpt per pt. BMI 44.2, A1c at presentation 6.6 Discussed lifestyle modification and medication options with the patient, she chose to go with lifestyle modification and an open to medication down the road. Per patient, another dietitian is meeting her tomorrow. Continue monitor blood sugar. Patient will need A1c repeated in 3 months and rediscussion on diabetes management according to the new A1c. #. Other chronic medical conditions: CHF [2020 TTE 55 to 60%], A. fib status post ablation on Coumadin, HTN, CKD, CVA history, and Continue home medications as appropriate. DVT prophylaxis. Coumadin INR goal between 2 and 3 Full code Disposition: Patient can be discharged to home after her evaluation/discussion with dietitian. Admission and Anticipated Discharge Date Admission Date: August 05, 2021 Subjective Patient was lying in bed, on 2 L nasal cannula oxygen, NAD, no acute events overnight. Patient reports having occasional jerking movements still. Patient denies any chest pain/headache/chills/palpitation/other review of symptoms. Patient was diagnosed with diabetes for the first time while in hospital, patient wanted a dietitian to consult and wanted to go with lifestyle modification first before being considered for medication. Dietitian will be seeing her tomorrow per evening visit with the patient. Physical Exam Physical Exam: GENERAL: Alert and oriented x3. NAD, on 2L. HEENT: No pallor, no icterus. Pupils equal, round and reactive to light. Oral mucosa moist. Scattered erythematous papules noted behind right ear. NECK: No JVD, no neck masses. HEART: S1 and S2 heard. Regular rate and rhythm. No murmur, no gallop. RESPIRATORY SYSTEM: Normal AP diameter. No accessory muscle use. No wheezing, no crackles. ABDOMEN: Soft, bowel sounds present, nontender, no distention. CENTRAL NERVOUS SYSTEM: Alert and oriented x3. No facial droop. Speech is clear. Obeys simple commands. Moves extremities. EXTREMITIES: trace BLE edema, no erythema seen. Results & Data Results & Data ([facility]) Vital Signs (Past 12 Hours) Vital Signs Temp Pulse Resp BP BP Pulse Ox 08/06/21 15:26 36.4 C L 81 16 108/72 93 08/06/21 05:56 36.3 C L 84 16 120/68 95 (1) Adverse effect of gabapentin Encounter type: initial encounter Qualified Code(s): T42.6X5A - Adverse effect of other antiepileptic and sedative-hypnotic drugs, initial encounter
[2021-08-06] MEDS ORDERED: LOSARTAN POTASSIUM 25 MG TAB PO SCH (21:00)
[2021-08-06] MEDS ORDERED: ATORVASTATIN 20 MG TAB PO SCH (21:00)
--- NOTE | 2021-08-07 06:52 | Electrocardiogram Report ---
Test Reason : Blood Pressure : / mmHG Vent. Rate : 080 BPM Atrial Rate : 241 BPM P-R Int : 000 ms QRS Dur : 088 ms QT Int : 334 ms P-R-T Axes : 000 -31 100 degrees QTc Int : 385 ms Atrial fibrillation Left axis deviation Low voltage QRS Inferior infarct (cited on or before 28-OCT-2019) Cannot rule out Anterior infarct , age undetermined Nonspecific T wave abnormality Abnormal ECG When compared with ECG of 08-MAR-2020 11:26, Minimal criteria for Anterior infarct are now Present Nonspecific T wave abnormality, worse in Inferior leads Confirmed by Tenzin Sorto ([id number]) on 08/07/2021 6:51:49 AM Referred By: REFERRED SELF Confirmed By:Tenzin Sorto
[2021-08-07 07:31] LABS: Hematocrit (blood only) 38.8 % (37-47); Mean Corpuscular Hemoglobin 30.3 pg (25-34); Mean Corpuscular Hgb Conc 33.5 g/dL (32-36); Mean Corpuscular Volume 90.4 fL (80-100); Mean Platelet Volume 10.3 fL (7.4-10.4); Platelet Count 254 K/uL (130-400); RDW Coefficient of Variation 14.5 % (11.5-14.5); RDW Standard Deviation 47.8 fL (36.4-46.3); Red Blood Count 4.29 M/uL (4.2-5.4); White Blood Count 5.93 K/uL (4.8-10.8)
[2021-08-07 07:55] LABS: INR 2.2 (0.9-1.1); Prothrombin Time 21.3 Seconds (9.0-12.0)
[2021-08-07] MEDS: TORSEMIDE 20 MG TAB PO SCH (09:06)
[2021-08-07] MEDS: POTASSIUM CHLORIDE CRTAB 20 MEQ TABCR PO SCH (09:06)
[2021-08-07] MEDS: POLYETHYLENE (MIRALAX) 17 GM PACK PO SCH (09:06)
[2021-08-07] MEDS: ASPIRIN 81 MG ECTAB PO SCH (09:06)
[2021-08-07] MEDS: LIDOCAINE 5% 1 PATCH TD SCH (09:12)
[2021-08-07] MEDS: INSULIN ASPART 100 UNITS/ML 3 ML PEN SC SCH ×2 (09:12→13:12)
--- NOTE | 2021-08-07 10:28 | Discharge Summary ---
Date of Service August 07, 2021 Admission HPI Per Admitting Provider History obtained from patient and records. Medical history significant for chronic diastolic heart failure (EF 55 to 60%, TTE 2019), A. fib status post ablation on Coumadin, hypertension, history of CVA as per records, DM2 diet-controlled, CRI (baseline creatinine 1.4). Last confinement February 2020 for decompensated heart failure Last week patient noted to have painful blisters and sores on the right side of her face and neck. PCP video appointment last week. Impression was Milady Blunt syndrome/herpes zoster./Suspected shingles infection relatively resolving. Topical antibiotic recommended for ulceration and external ear. Improved lesions as per patient. Gabapentin later prescribed by outpatient provider for pain following patient's request. Escalating doses recommended over the next few days. Patient later on noted involuntary shaking and jerking following intake of escalating doses of Gabapentin. "Possible seizures" without headache or altered consciousness as per patient. No syncope. Some dizziness. Patient directed by PCP to ER for evaluation. Involuntary jerking resolved after Ativan administration. MEDICAL HISTORY: As above. SURGERIES: She has had hysterectomy, vaginal repair, hemorrhoidectomy, uterine suspension, dental surgery, paraesophageal hernia repair. FAMILY HISTORY:Dementia, cirrhosis PERSONAL AND SOCIAL HISTORY: Nonsmoker, no ETOH intake, former [employer] employee employee. Admission Exam Per Admitting Provider GENERAL: Comfortable, lethargic, morbidly obese, pleasant, no respiratory distress SKIN: Normal color, warm HEENT: [place] palpebral conjunctivae, no ptosis, dry buccal mucosa NECK : Faint brown lesions right neck, short neck, minimal tenderness CHEST : CTA, no tenderness HEART : Irregular, no obvious murmurs ABDOMEN: Some distention, nontender EXTREMITIES : Bilateral LE swelling, no LE tenderness, no other conspicuous def ormities noted NEUROLOGIC : Lethargic, no facial asymmetry, no other gross focality Principal Diagnosis Adverse effect of gabapentin Jerking movements of extremities due to gabapentin toxicity Type 2 Diabetes Mellitus Discharge Exam Gen: Obese, F, WD/WN, NAD, A&O x3 HEENT: Normocephalic, atraumatic, conjunctivae moist, sclerae anicteric, mucous membranes moist. Lung: Clear to Auscultation bilaterally, no wheezes/rales/rhonchi Heart: IRR/IRR, no murmurs, rubs, or gallops Abdomen: Soft, NT, ND +BS x 4 Extremities: No edema Skin: Warm, no rash, negative turgor. Neuro: no jerking movements Discharge Data Allergies Allergy/AdvReac Type Severity Reaction Status Date / Time latex Allergy Unknown Rash, Verified 08/05/21 20:09 itching, blisters morphine AdvReac Severe abdominal Verified 08/05/21 20:09 pain gabapentin AdvReac Intermediate inv jerking Verified 08/05/21 23:22 codeine AdvReac Mild NAUSEA,ABD Verified 08/05/21 20:09 PAIN oxycodone AdvReac Mild OPIATE Verified 08/05/21 20:09 AGONSITS = NAUSEA AND ABD PAIN Consultations Neurology Consultation: 1) Jerking movements of extremities: 1. gabapentin related jerking resolved after gabapentin was stopped 2. no current complaints of pain 3. if restarted would start 100 mg hs x 5 days then 100 mg bid x 5 days then 100 mg tid. could increase by 100 mg every 5 days if needed but with renal dosing of no more than 700 mg BID 4. PT/OT for further discharge needs 5. primary team for any medical management 6. will sign off for now no further neurologic follow up need. will see her on an as needed basis. (2) Adverse effect of gabapentin: (3) Shingles: Supervising Physician Co-Signing Physician Notes I have seen and discussed above patient with Dr Tony Wilson, neurology I have interviewed briefly examined Mrs. Ferrer today with Harleen Gonzalez PA-C and did discuss her case last night with Dr. Graham of the emergency room She developed what appears to be right-sided C1 dermatomal shingles within the past 7 to 10 days but did not reported time to be in the window for antiviral treatment, had some pain and was started on gabapentin but I suspect she misunderstood the directions and took 3 of the 300 mg tablets on the third day as a single dose and promptly developed what sounds like myoclonus tremor mild confusion but admits in retrospect that the pain was magically relieved and remains from the now despite being off the medication as she was brought to the emergency room and admitted and it has not recurred. She apparently had 1 or 2 brief myoclonic episodes this morning and has had none this afternoon, her EEG is absolutely normal, she does have some low-grade renal disease with a creatinine clearance of 43 Exam reveals her to be awake alert and oriented grossly intact cranial nerves normal mental status normal motor system movements and no abnormal involuntary activity At this point I think this was a gabapentin tox facility of acute type and suspect she actually could take this medication at a lower dose i.e. perhaps 100 mg 3 times a day if needed in the future to control her pain and based on her renal clearance calculation she could take up to 1400 mg total per day given that 700 mg every 12 hours She apparently had a remarkable pain response to tramadol in remote past and wonders if she could take this medication but I reminded her that it is a narcotic and we really would prefer not to go down the narcotic road particularly since she may be faced with some chronic low-grade need for analgesia in which case the gabapentin would certainly be much safer if tolerated We will sign off the case at this point I think she can be discharged and we certainly can see her on an as-needed basis of her primary care physician would desire us to do so Tony Wilson MD Procedures Performed EEG:Start / End Times Start Time: 1248 End Time: 108 Referring Physician Tony Wilson MD History 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 question underlying encephalopathy or myoclonus epilepsy Home Medication List Medication Instructions Recorded Confirmed Type atorvastatin 20 mg tablet 20 mg PO HS 10/28/19 08/05/21 Histo ry ergocalciferol (vitamin D2) 1,250 1,250 mcg PO WK 10/28/19 History mcg (50,000 unit) capsule (Vitamin D2) losartan 25 mg tablet 25 mg PO HS 10/28/19 08/05/21 History metoprolol succinate 50 mg 50 mg PO HS 10/28/19 08/05/21 Hist ory tablet,extended release 24 hr potassium chloride 20 mEq 20 meq PO BID 10/28/19 08/05/21 Histo ry tablet,extended release warfarin 5 mg tablet (Jantoven) See Rx Instructions .ROUTE .COMPLEX 10/28/19 08/05/21 History torsemide 20 mg tablet 60 mg PO DAILY #90 tab 03/12/20 08/05/21 Rx aspirin 81 mg tablet,delayed 81 mg PO QAM 08/05/21 08/05/21 Hi story release gabapentin 300 mg capsule 300 mg PO DAILY 08/05/21 08/05/21 Histo ry Inpatient Medication List Aspirin (Aspirin 81 Mg Ectab) 81 mg PO QAM JOSSY Stop: 09/05/21 08:59 Last Admin: 08/06/21 08:48 Dose: 81 mg Documented by: [id number] Insulin Aspart (Insulin Aspart 100 Units/Ml 3 Ml Pen) 0 units SC ACHS JOSSY Stop: 09/05/21 07:29 Last Admin: 08/06/21 13:39 Dose: 4 units Documented by: [id number] Cosigned by: [id number] Admin: 08/06/21 09:45 Dose: 2 units Documented by: [id number] Cosigned by: [id number] Lidocaine (Lidocaine 5% 1 Patch) 1 patch TD QAM JOSSY Stop: 09/04/21 23:29 Last Admin: 08/05/21 23:37 Dose: 1 patch Documented by: [id number] Metoprolol Succinate (Metoprolol Succ 50mg Ext Rel Tab) 50 mg PO HS [facility] Stop: 09/05/21 00:17 Last Admin: 08/06/21 01:23 Dose: 50 mg Documented by: [id number] Miscellaneous (Remove Lidoderm Patch) 1 ea N/A DAILY@2100 JOSSY Stop: 09/05/21 11:29 Last Admin: 08/06/21 13:38 Dose: 1 ea Documented by: [id number] Polyethylene Glycol (Polyethylene (Miralax) 17 Gm Pack) 17 gm PO DAILY JOSSY Stop: 08/08/21 09:01 Last Admin: 08/06/21 09:44 Dose: 17 gm Documented by: [id number] Potassium Chloride (Potassium Chloride Crtab 20 Meq Tabcr) 20 meq PO BID JOSSY Stop: 09/05/21 08:59 Last Admin: 08/06/21 08:49 Dose: 20 meq Documented by: [id number] Torsemide (Torsemide 20 Mg Tab) 60 mg PO DAILY JOSSY Stop: 09/05/21 08:59 Last Admin: 08/06/21 08:48 Dose: 60 mg Documented by: [id number] Discontinued Medications Lorazepam (Ativan) 0.5 mg in 1 mls @ 1 mls/min IV NOW STA Stop: 08/05/21 21:20 Last Admin: 08/05/21 21:25 Dose: 1 mls/min Documented by: [id number] Albumin Human (Albumin 25%) 12.5 gm in 50 mls @ 50 mls/hr IV ONE ONE Stop: 08/06/21 00:22 Last Infusion: 08/06/21 00:48 Dose: 0 mls/hr Documented by: [id number] Admin: 08/05/21 23:38 Dose: 50 mls/hr Documented by: [id number] Warfarin Sodium (Warfarin Sod 5 Mg Tab) 5 mg PO NOW ONE Stop: 08/05/21 23:15 Last Admin: 08/05/21 23:55 Dose: 5 mg Documented by: [id number] Description This is a 21 electrode EEG with a single channel dedicated to limited EKG. The electrodes were placed in accordance with the International 10-20 system. This EEG was done as bedside tracing is of good technical quality with fewer no muscle movement artifact on the video analysis of the patient movement and behavior indicated no evidence for myoclonus or tremor. Drowsiness/sleep not recorded. Photic stimulation was performed. Under these conditions there is evidence for normal-appearing background rhythm in the alpha range of up to 9 Hz and maximum frequency and 30 V a maximum amplitude. This is maximum posterior head regions and is bilaterally symmetrical. Polymorphic mid to upper frequency modest voltage theta activity is seen symmetrically over the central regions and beta activity seen bifrontally Examination provokes a minimal driving response with no photo myogenic or photoparoxysmal components are noted No potentially epileptiform discharges are seen Interpretation This is a normal EEG during wakefulness Clinical Correlation This EEG is normal fails to reveal evidence for a focal or generalized encephalopathy and specifically fails to reveal evidence for any potentially epileptogenic activity, or other paroxysmal abnormalities specifically cortically originally any myoclonus Tony Wilson MD Ordered Studies Head CT 08/05/21 18:18 CT head/brain wo con CLINICAL HISTORY: Patient started a new medication today and has developed uncontrollable shaking and jerking motions. COMPARISON STUDY: 04/01/2016 CT DOSE: 1842.80 mGy.cm TECHNIQUE: Standard CT of the Brain was performed without IV contrast. A dose lowering technique was utilized adhering to the principles of ALARA. FINDINGS: Extraaxial space: There is no evidence for subdural hematoma. There are no extra-axial fluid collections. Ventricles and cisterns: The ventricles are normal in size and configuration. There is no evidence for midline shift or mass effect. Parenchyma: There is no subarachnoid or intraparenchymal hemorrhage. There is no evidence for an acute infarct or cerebral edema. There is mild cerebral cortical atrophy present. There is homogeneous attenuation of the brain parenchyma. There are no gross mass lesions. Osseous structures: There is no evidence for an acute fracture. The visualized paranasal sinuses are clear. The mastoid air cells are clear bilaterally. Soft tissues: There is no evidence for focal soft tissue swelling. IMPRESSION: No acute intracerebral pathology. There is again evidence for mild cerebral cortical atrophy. ACT 112: Negative or not required by law. Electronically signed by: Alex Matias M.D. 08/05/2021 7:53 PM Chest X-Ray 08/05/21 21:57 XR chest 1V portable CLINICAL HISTORY: renal failure. Evaluate for vascular congestion/pulmonary edema COMPARISON STUDY: 03/08/2020 TECHNIQUE: 1 view of the chest FINDINGS: Single frontal view of the chest demonstrates the heart to again be enlarged. There is a decreased inspiratory effort with elevation of the hemidiaphragms and crowding of the bronchovascular markings at the lung bases and centrally. There is minimal left basilar atelectasis. The lungs are clear of alveolar opacities. There is no evidence for pleural effusion. There is no evidence for vascular congestion. There is no acute osseous pathology. IMPRESSION: Decreased inspiration with left basilar atelectasis. No evidence for vascular congestion. ACT 112: Negative or not required by law. Electronically signed by: Alex Matias M.D. 08/05/2021 10:20 PM Diabetes Follow up A1C 6.6 03/09/20 A1C 6.4 02/13/2021 Hospital Course (1) Jerking movements of extremities: (2) Adverse effect of gabapentin: This is an 80-year-old female who has significant past medical history of persistent atrial fibrillation anticoagulated on warfarin, diastolic CHF, HTN, HLD, CKD stage III, pre DM, history of CVA without residual deficit, prediabetes, morbid obesity who presents to ED secondary to ED secondary to inv oluntary jerking. Hospitalization she was diagnosed with herpes zoster concerning for [place] suspected shingle infection was resolving and she was out of window for antiviral treatment. Due to complaints of pain she was started on gabapentin. Her gabapentin medication was escalated over a few days. She then noted involuntary movements in shaking with increasing doses of gabapentin upper extremities. She was concern for possible seizure. She denied any other symptoms including headache, syncope, change in vision. She did have mild dizziness. PCP sent patient to ED. Symptoms did not resolve after Ativan administration. She was admitted to hospitalist service and neurology was consulted. Is felt her symptoms were secondary to gabapentin toxicity. Her gabapentin was discontinued and she wishes to remain off gabapentin. Her last episode of jerking was last night at approximately 8 PM. She had one episode of a left arm jerk. Otherwise her symptoms have resolved significantly. EEG was performed and was felt to be normal. Neurology recommendation is to remain off gabapentin. If wishes to resume gabapentin they feel it can be safely done initiating at a lower dose and slower titration. Per Neuro, "if restarted would start 100 mg hs x 5 days then 100 mg bid x 5 days then 100 mg tid. could increase by 100 mg every 5 days if needed but with renal dosing of no more than 700 mg BID". She currently denies any pain. On day of discharge she was in good spirits and ready to be discharged home. Her vital signs are stable, she was oriented x3 remains in atrial fibrillation and with a therapeutic INR on Coumadin. Attending Addendum: delayed entry date of service noted above care coordinated with [facility] please refer to her notes for full details, I agree with her notes patient seen and examined, records reviewed by myself as well on exam, patient seen resting in bed states she feels much better no chest pain, dyspnea, palpitations, dizziness no other symptoms VS noted and reviewed oriented x 3 , not in distress, speaks in sentences with no effort nor accessory muscle use normal rate, regular rhythm, no murmurs clear breath sounds bilaterally non distended, soft, nontender no bipedal edema, erythema, warmth no neuro deficits all labs noted and reviewed ASSESSMENT AND PLAN> Gabapentin Adverse Reaction symptoms have resolved with discontinuation of Gabapentin History of Herpes Zoster requesting Tramadol PRN Rx given other diagnoses and plan of care as per [facility]'s notes Dustin Franks MD Total Time Total Time Spent Total Time Spent (In Minutes): 60 minutes Total Time Includes: Examination of the Patient, Discharge Planning, Medication Reconciliation, Communication With Other Providers and Other Discharge Plan Discharge Items Patient Disposition: Home - Self-Care Reason For Visit: INVOL MOVEMENT Discharge Diagnosis: Adverse effect of gabapentin Jerking movements of extremities due to gabapentin toxicity Type 2 Diabetes Mellitus Activity: Resume your previous activity Non-emergency contact: Primary Care Provider Call non-emergency contact if: you have any medication questions, your symptoms worsen, you have a fever and your temperature is above 101 Follow-up/Referrals: Willie Coates MD [Primary Care Provider] - (Date & Time 08/12/2021 9:40 AM Provider Willie Coates MD [facility] ) Diet: Carb Consistent or DM2 Addtl Attending Provider Instructions: MEDICATION CHANGES: STOP: Gabapentin New: Tramadol 50mg every 6 hours as needed for moderate to severe pain SUMMARY OF TEST RESULTS: You were seen and evaluated by neurology. It was felt your symptoms were related to toxicity of Gabapentin. Your symptoms resolved after stopping Gabapentin. PENDING TEST RESULTS: None RECOMMENDATIONS FOR FOLLOW-UP: Please follow up with PCP as scheduled. Follow up with [facility] on 08/13/21 @ 5:40 p.m. Continue your current warfarin regimen. Your INR today was 2.2. Continue all medications as prescribed. Recommend weight loss and exercise to help improve your A1C. Please refer to handouts provided. 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 OTHER INSTRUCTIONS: Seek medical attention if you have: * temperature above 101 * chest pain or trouble breathing * abdominal pain, nausea, vomiting * diarrhea, dark stools or bloody stools * any unanswered questions or concerns Call 911 if symptoms are severe. Please take good care of yourself. It has been a pleasure taking care of you. Please take care of yourself. If you have any questions regarding your recent hospitalization please contact [facility] and request Alana Desaiist @ [phone]. Thelma Avendano PA-C Pending Studies at Discharge: No Stand-Alone Forms: [facility], Opioid Pain Management, Smoking Cessation Medications and DC Order Prescriptions: New tramadol 50 mg tablet 50 mg PO Q6H PRN (Reason: severe pain (scale score 7-10)) Qty: 14 RF: 0 Continued atorvastatin 20 mg Tablet 20 mg PO HS RF: 0 metoprolol succinate 50 mg Tablet Extended Release 24 Hr 50 mg PO HS RF: 0 warfarin [Jantoven] 5 mg tablet See Rx Instructions .ROUTE .COMPLEX RF: 0 losartan 25 mg Tablet 25 mg PO HS RF: 0 ergocalciferol (vitamin D2) [Vitamin D2] 1,250 mcg (50,000 unit) Capsule 1,250 mcg PO WK RF: 0 potassium chloride 20 mEq Tablet Extended Release 20 meq PO BID RF: 0 torsemide 20 mg tablet 60 mg PO DAILY Qty: 90 RF: 5 aspirin 81 mg tablet,delayed release (DR/EC) 81 mg PO QAM RF: 0 Discontinued gabapentin 300 mg capsule 300 mg PO DAILY RF: 0 Discharge Orders: Discharge Order (Routine); Ordered 08/07/21 Ordered By: Thelma West/Other Patient Handouts: A1C, Healthy Meals for Diabetes, Diabetes Learn Serve Portion Size, Diabetes Carbs Fats Protein Admission Data Admit Date/Time: 08/05/21 23:19 Attending Provider: Dustin Franks Admit Provider: Aram Coronel Primary Care Provider: Willie Coates Other Providers: Aram Coronel ; Tony Wilson Rishikesh ; Thelma Avendano Other Interventions: Discharge Summary Assessment (RN) Last Done: 08/07/21 12:52
== END 2021-08-07 13:45 | disposition home or self-care (01) ==
LOC: 3W 18:04 → ED 18:04 → SUATTDRO 23:19 → SUPCPDRO 23:19 → 3W 23:54